=== PATIENT | male | born 1950 | race Caucasian/White ===

== ENCOUNTER 2020-01-14 17:43 | Inpatient (IN) | payer OTHER, MEDICAID, SELFPAY ==
[~2020-01-14] VITALS: Ht 177.8 cm; Wt 110.9 kg
[2020-01-14] MEDS ORDERED: GLUC1KIT IJ (18:15)
[2020-01-14] MEDS ORDERED: FOLI0.8T42 PO (18:15)
[2020-01-14] MEDS ORDERED: HYDR-4274 PO (18:15)
[2020-01-14] MEDS ORDERED: WARF3TAB PO (18:15)
[2020-01-14] MEDS ORDERED: CAT.1 PO (18:15)
[2020-01-14] MEDS ORDERED: LISI-600 PO (18:15)
[2020-01-14] MEDS ORDERED: INSU100I4 SUBQ (18:15)
[2020-01-14] MEDS ORDERED: GABA-529 PO (18:15)
[2020-01-14] MEDS ORDERED: CALC667T6 PO (18:15)
[2020-01-14] MEDS ORDERED: ACET-2165 PO (18:15)
[2020-01-14] MEDS ORDERED: GLIP10TA PO (18:15)
[2020-01-14] MEDS ORDERED: DIPH-934 PO (18:15)
[2020-01-14 18:25] VITALS: BP_SYST 132
[2020-01-14 18:25] LABS: BASOPHILS % (AUTO) 0.3 % (0.0-2.0); EOSINOPHILS # (AUTO) 0.2 K/uL (0.0-0.4); EOSINOPHILS % (AUTO) 1.4 % (0.0-4.0); HEMATOCRIT 27.9 % (36-54); HEMOGLOBIN 8.9 g/dL (14.0-18.0); LYMPHOCYTES # (AUTO) 0.7 K/uL (1.0-5.5); LYMPHOCYTES % (AUTO) 5.2 % (20.5-51.5); MEAN CORPUSCULAR HEMOGLOBIN 31 pg (27-31); MEAN CORPUSCULAR HGB CONC 32 % (32-36); MEAN CORPUSCULAR VOLUME 97 fL (79.0-98.0); MONOCYTES # (AUTO) 0.6 K/uL (0.0-1.0); MONOCYTES % (AUTO) 4.6 % (1.7-9.3); NEUTROPHILS # (AUTO) 12.1 K/uL (1.8-7.7); NEUTROPHILS % (AUTO) 88.5 % (40.0-70.0); PLATELET COUNT (AUTO) 304 K/uL (130-430); RED BLOOD CELL COUNT(AUTO) 2.86 MIL/uL (4.2-6.2); RED CELL DISTRIBUTION WIDTH 18.5 % (9.0-15.0); WHITE BLOOD COUNT (AUTO) 13.6 K/uL (4.8-10.8)
[2020-01-14 18:26] VITALS: BP_SYST 132
[2020-01-14 18:39] LABS: CREATININE 6.36 mg/dL (0.55-1.30); POTASSIUM 3.3 mmol/L (3.5-5.1)
[2020-01-14 18:41] LABS: BILIRUBIN,URINE NEGATIVE (NEGATIVE); COLOR,URINE YELLOW (YELLOW); GLUCOSE,URINE NEGATIVE (NEGATIVE); KETONES,URINE NEGATIVE (NEGATIVE); LEUKOCYTE ESTERASE ,URINE 2+ (NEGATIVE); NITRITE, URINE NEGATIVE (NEGATIVE); PROTEIN URINE NEGATIVE (NEGATIVE); UROBILINOGEN,URINE 0.2 (0.2-1.0)
[2020-01-14 18:44] LABS: ALBUMIN 1.9 g/dL (3.4-4.8); TOTAL BILIRUBIN 0.4 mg/dL (0.0-1.0)
[2020-01-14 18:52] LABS: BLOOD, URINE TRACE (NEGATIVE); CLARITY/URINE HAZY (CLEAR)
[2020-01-14 18:58] LABS: CALCIUM 13.8 mg/dL (8.4-11.0)
[2020-01-14 19:19] LABS: BACTERIA,URINE MODERATE /HPF (None Seen)
[2020-01-14 19:20] LABS: MUCUS,URINE None Seen /LPF (None Seen); YEAST,URINE Few /HPF (None Seen)
[2020-01-14] MEDS ORDERED: FUROSEMIDE 40 MG/4 ML VIAL IVP ONE (19:30)
[2020-01-14] MEDS ORDERED: NACL 0.9% 1,000 ML IV ONE (19:30)
[2020-01-14 19:47] LABS: INR 2.5 (0.80-1.20)
[2020-01-14] MEDS: glipiZIDE XL 5 MG TAB ( GLUCOTROL XL) PO SCH (21:15)
[2020-01-14] MEDS ORDERED: ACETAMINOPHEN 325 MG TABLET PO PRN (21:15)
[2020-01-14 21:16] VITALS: BP_SYST 122
[2020-01-14] MEDS ORDERED: HYDROcodone/ACETAMIN 10-325 MG TAB PO PRN (21:30)
[2020-01-14] MEDS ORDERED: cefTRIAXone 1 GM IVPB PREMIX 50 ML IV ONE (21:40)
[2020-01-14] MEDS: levETIRAcetam 500 MG IV PREMIX 100 ML IV SCH (22:47)
[2020-01-14] MEDS: WARFARIN SODIUM 3 MG TABLET PO SCH (23:23)
[2020-01-14] MEDS: GABAPENTIN 100 MG CAPSULE PO SCH (23:24)
[2020-01-14] MEDS: NEPHROVITE, (FOLIC ACID/VITAMIN B COMP W-C 1 TAB) PO SCH (23:24)
[2020-01-14] MEDS: CALCITONIN SALMON,SYNTHETIC 200 UNITS/ML VIAL SUBCUT SCH ×2 (23:25→23:38)
[2020-01-14] MEDS: LISINOPRIL 20 MG TABLET PO SCH (23:25)
[2020-01-15 01:48] VITALS: BP_SYST 102
[2020-01-15 06:27] LABS: BASOPHILS # (AUTO) 0.1 K/uL (0.0-0.2); BASOPHILS % (AUTO) 0.5 % (0.0-2.0); EOSINOPHILS # (AUTO) 0.3 K/uL (0.0-0.4); EOSINOPHILS % (AUTO) 2.3 % (0.0-4.0); HEMATOCRIT 24.9 % (36-54); LYMPHOCYTES # (AUTO) 1.1 K/uL (1.0-5.5); LYMPHOCYTES % (AUTO) 7.5 % (20.5-51.5); MEAN CORPUSCULAR HEMOGLOBIN 31 pg (27-31); MEAN CORPUSCULAR HGB CONC 32 % (32-36); MEAN CORPUSCULAR VOLUME 97 fL (79.0-98.0); MONOCYTES # (AUTO) 0.9 K/uL (0.0-1.0); MONOCYTES % (AUTO) 6.1 % (1.7-9.3); NEUTROPHILS # (AUTO) 12.3 K/uL (1.8-7.7); NEUTROPHILS % (AUTO) 83.6 % (40.0-70.0); PLATELET COUNT (AUTO) 256 K/uL (130-430); RED BLOOD CELL COUNT(AUTO) 2.56 MIL/uL (4.2-6.2); RED CELL DISTRIBUTION WIDTH 18.8 % (9.0-15.0); WHITE BLOOD COUNT (AUTO) 14.8 K/uL (4.8-10.8)
[2020-01-15 06:40] LABS: ALBUMIN 1.8 g/dL (3.4-4.8); CALCIUM 12.4 mg/dL (8.4-11.0); CREATININE 6.84 mg/dL (0.55-1.30); POTASSIUM 3.1 mmol/L (3.5-5.1); TOTAL BILIRUBIN 0.3 mg/dL (0.0-1.0)
[2020-01-15] MEDS: glipiZIDE XL 5 MG TAB ( GLUCOTROL XL) PO SCH (07:00)
[2020-01-15 08:30] VITALS: BP_SYST 154
[2020-01-15] MEDS: GABAPENTIN 100 MG CAPSULE PO SCH ×3 (09:00→21:00)
[2020-01-15] MEDS: LISINOPRIL 20 MG TABLET PO SCH (09:00)
[2020-01-15] MEDS: CALCITONIN SALMON,SYNTHETIC 200 UNITS/ML VIAL SUBCUT SCH ×2 (09:00→14:28)
[2020-01-15] MEDS: NEPHROVITE, (FOLIC ACID/VITAMIN B COMP W-C 1 TAB) PO SCH (09:00)
[2020-01-15] MEDS: DIPHENHYDRAMINE HCL 12.5 MG/5 ML UDC PO SCH (09:00)
[2020-01-15] MEDS: levETIRAcetam 500 MG IV PREMIX 100 ML IV SCH ×2 (09:53→21:58)
[2020-01-15 12:24] VITALS: BP_SYST 189
[2020-01-15] MEDS: D5/0.45 NS 1,000 ML IV SCH (14:25)
[2020-01-15 15:43] VITALS: BP_SYST 146
[2020-01-15] MEDS: WARFARIN SODIUM 3 MG TABLET PO SCH (17:57)
[2020-01-15] MEDS ORDERED: FLUCONAZOLE 100 mg/ NS 50 ML IV ONE (18:00)
[2020-01-15] MEDS ORDERED: INSULIN REGULAR, HUMAN 100 UNITS/ML, 10 ML VIAL (humuLIN R) SUBCUT PRN (19:00)
[2020-01-15 20:18] VITALS: BP_SYST 151
[2020-01-15] MEDS: metroNIDAZOLE 500 mg/NS 100 ML IV SCH (20:22)
[2020-01-15] MEDS: cefTRIAXone 1 GM in D5W 50 ML IV SCH (22:37)
[2020-01-15] MEDS: HEPARIN SODIUM,PORCINE 5000 UNITS/ML VIAL SUBCUT SCH (22:41)
[2020-01-16 02:03] VITALS: BP_SYST 115
[2020-01-16] MEDS: glipiZIDE XL 5 MG TAB ( GLUCOTROL XL) PO SCH (03:40)
[2020-01-16] MEDS: D5/0.45 NS 1,000 ML IV SCH ×2 (05:24→22:39)
[2020-01-16] MEDS: HEPARIN SODIUM,PORCINE 5000 UNITS/ML VIAL SUBCUT SCH (05:28)
[2020-01-16 06:37] LABS: BASOPHILS # (AUTO) 0.1 K/uL (0.0-0.2); BASOPHILS % (AUTO) 0.6 % (0.0-2.0); EOSINOPHILS # (AUTO) 0.4 K/uL (0.0-0.4); EOSINOPHILS % (AUTO) 2.4 % (0.0-4.0); HEMATOCRIT 24.9 % (36-54); HEMOGLOBIN 8.1 g/dL (14.0-18.0); LYMPHOCYTES % (AUTO) 6.3 % (20.5-51.5); MEAN CORPUSCULAR HEMOGLOBIN 32 pg (27-31); MEAN CORPUSCULAR HGB CONC 32 % (32-36); MEAN CORPUSCULAR VOLUME 98 fL (79.0-98.0); MONOCYTES # (AUTO) 0.9 K/uL (0.0-1.0); MONOCYTES % (AUTO) 5.5 % (1.7-9.3); NEUTROPHILS # (AUTO) 14.1 K/uL (1.8-7.7); NEUTROPHILS % (AUTO) 85.2 % (40.0-70.0); PLATELET COUNT (AUTO) 244 K/uL (130-430); RED BLOOD CELL COUNT(AUTO) 2.54 MIL/uL (4.2-6.2); RED CELL DISTRIBUTION WIDTH 18.7 % (9.0-15.0); WHITE BLOOD COUNT (AUTO) 16.6 K/uL (4.8-10.8)
[2020-01-16 06:43] LABS: ALBUMIN 1.8 g/dL (3.4-4.8); CALCIUM 10.2 mg/dL (8.4-11.0); CREATININE 4.93 mg/dL (0.55-1.30); TOTAL BILIRUBIN 0.4 mg/dL (0.0-1.0)
[2020-01-16 06:54] LABS: POTASSIUM 2.9 mmol/L (3.5-5.1)
[2020-01-16 07:13] LABS: INR 3.7 (0.80-1.20); PROTHROMBIN TIME 36.2 SECS (9.5-12.5)
[2020-01-16 08:00] VITALS: BP_SYST 137
[2020-01-16] MEDS ORDERED: POTASSIUM CHLORIDE 40 MEQ in NS 250 ML IV ONE (08:45)
[2020-01-16] MEDS: GABAPENTIN 100 MG CAPSULE PO SCH ×3 (09:00→21:00)
[2020-01-16] MEDS: NEPHROVITE, (FOLIC ACID/VITAMIN B COMP W-C 1 TAB) PO SCH (09:00)
[2020-01-16] MEDS: LISINOPRIL 20 MG TABLET PO SCH (09:00)
[2020-01-16] MEDS: POVIDONE IODINE TP SCH (09:00)
[2020-01-16] MEDS: DIPHENHYDRAMINE HCL 12.5 MG/5 ML UDC PO SCH (09:00)
[2020-01-16] MEDS: levETIRAcetam 500 MG IV PREMIX 100 ML IV SCH ×2 (10:05→21:07)
[2020-01-16] MEDS: metroNIDAZOLE 500 mg/NS 100 ML IV SCH ×2 (10:05→21:07)
[2020-01-16] MEDS: CALCITONIN SALMON,SYNTHETIC 200 UNITS/ML VIAL SUBCUT SCH (10:07)
[2020-01-16 12:18] VITALS: BP_SYST 142
[2020-01-16] MEDS ORDERED: DEXTROSE 50% JECT 50 ML DISP.SYRIN IVP PRN (14:45)
[2020-01-16 16:45] VITALS: BP_SYST 155
[2020-01-16 20:00] VITALS: BP_SYST 145
[2020-01-16] MEDS: cefTRIAXone 1 GM in D5W 50 ML IV SCH (21:08)
[2020-01-17 00:52] VITALS: BP_SYST 141
[2020-01-17] MEDS: INSULIN LISPRO SLIDING SCALE 100 UNITS/ML VIAL (humaLOG) SUBCUT PRN ×2 (06:05→11:45)
[2020-01-17 06:52] LABS: INR 3.8 (0.80-1.20); PROTHROMBIN TIME 36.9 SECS (9.5-12.5)
[2020-01-17 08:26] VITALS: BP_SYST 124
[2020-01-17] MEDS: LISINOPRIL 20 MG TABLET PO SCH (09:00)
[2020-01-17] MEDS: NEPHROVITE, (FOLIC ACID/VITAMIN B COMP W-C 1 TAB) PO SCH (09:00)
[2020-01-17] MEDS: GABAPENTIN 100 MG CAPSULE PO SCH ×3 (09:00→20:38)
[2020-01-17] MEDS: DIPHENHYDRAMINE HCL 12.5 MG/5 ML UDC PO SCH (09:00)
[2020-01-17] MEDS: metroNIDAZOLE 500 mg/NS 100 ML IV SCH ×2 (10:07→20:33)
[2020-01-17] MEDS: levETIRAcetam 500 MG IV PREMIX 100 ML IV SCH ×2 (10:08→20:33)
[2020-01-17] MEDS: CALCITONIN SALMON,SYNTHETIC 200 UNITS/ML VIAL SUBCUT SCH (10:18)
[2020-01-17 11:08] LABS: A/G RATIO 0.8 (0.7-1.7); ALBUMIN 2.4 g/dL (2.9-4.4); ALPHA-1-GLOBULIN 0.4 g/dL (0.0-0.4); ALPHA-2-GLOBULIN 0.8 g/dL (0.4-1.0); BETA GLOBULIN 0.9 g/dL (0.7-1.3); GAMMA GLOBULIN 0.8 g/dL (0.4-1.8); GLOBULIN, TOTAL 2.9 g/dL (2.2-3.9); M-SPIKE Not Observed g/dL (Not Observed)
[2020-01-17 11:45] LABS: KAPPA & LAMBDA LT CHAIN RATIO 1.78 (0.26-1.65)
[2020-01-17 12:28] VITALS: BP_SYST 110
[2020-01-17 16:10] VITALS: BP_SYST 115
[2020-01-17] MEDS: POVIDONE IODINE TP SCH (16:30)
[2020-01-17] MEDS: D5/0.45 NS 1,000 ML IV SCH (17:02)
[2020-01-17] MEDS: FLUCONAZOLE 100 mg/ NS 50 ML IV SCH (18:22)
[2020-01-17 19:59] LABS: CALCIUM 9.4 mg/dL (8.4-11.0); CREATININE 3.32 mg/dL (0.55-1.30); POTASSIUM 3.7 mmol/L (3.5-5.1)
[2020-01-17 20:15] VITALS: BP_SYST 128
[2020-01-17] MEDS: cefTRIAXone 1 GM in D5W 50 ML IV SCH (20:33)
[2020-01-17] MEDS: HALOPERIDOL LACTATE 5 MG/ML VIAL IM PRN (22:10)
[2020-01-18 00:05] VITALS: BP_SYST 108
[2020-01-18] MEDS: INSULIN LISPRO SLIDING SCALE 100 UNITS/ML VIAL (humaLOG) SUBCUT PRN ×2 (00:23→13:08)
[2020-01-18] MEDS: HALOPERIDOL LACTATE 5 MG/ML VIAL IM PRN (05:16)
[2020-01-18 06:58] LABS: BASOPHILS # (AUTO) 0.1 K/uL (0.0-0.2); BASOPHILS % (AUTO) 0.5 % (0.0-2.0); EOSINOPHILS # (AUTO) 0.5 K/uL (0.0-0.4); HEMATOCRIT 23.9 % (36-54); LYMPHOCYTES % (AUTO) 7.7 % (20.5-51.5); MEAN CORPUSCULAR HEMOGLOBIN 32 pg (27-31); MEAN CORPUSCULAR HGB CONC 33 % (32-36); MEAN CORPUSCULAR VOLUME 96 fL (79.0-98.0); MONOCYTES # (AUTO) 0.7 K/uL (0.0-1.0); MONOCYTES % (AUTO) 5.1 % (1.7-9.3); NEUTROPHILS # (AUTO) 11.3 K/uL (1.8-7.7); NEUTROPHILS % (AUTO) 82.7 % (40.0-70.0); PLATELET COUNT (AUTO) 227 K/uL (130-430); RED BLOOD CELL COUNT(AUTO) 2.48 MIL/uL (4.2-6.2); RED CELL DISTRIBUTION WIDTH 18.7 % (9.0-15.0); WHITE BLOOD COUNT (AUTO) 13.7 K/uL (4.8-10.8)
[2020-01-18 07:23] LABS: INR 3.7 (0.80-1.20); PROTHROMBIN TIME 36.3 SECS (9.5-12.5)
[2020-01-18 08:54] VITALS: BP_SYST 167
[2020-01-18] MEDS: DIPHENHYDRAMINE HCL 12.5 MG/5 ML UDC PO SCH (09:00)
[2020-01-18] MEDS: NEPHROVITE, (FOLIC ACID/VITAMIN B COMP W-C 1 TAB) PO SCH (09:00)
[2020-01-18] MEDS: LISINOPRIL 20 MG TABLET PO SCH (09:00)
[2020-01-18] MEDS: GABAPENTIN 100 MG CAPSULE PO SCH ×3 (09:00→21:00)
[2020-01-18] MEDS: POVIDONE IODINE TP SCH (09:00)
[2020-01-18] MEDS: QUEtiapine FUMARATE 25 MG TABLET PO SCH ×3 (09:00→21:00)
[2020-01-18] MEDS ORDERED: *TPN PER PHARMACY XX PRN (09:45)
[2020-01-18 11:30] VITALS: BP_SYST 141
[2020-01-18] MEDS: levETIRAcetam 500 MG IV PREMIX 100 ML IV SCH ×2 (12:40→21:40)
[2020-01-18] MEDS: D5/0.45 NS 1,000 ML IV SCH (12:48)
[2020-01-18] MEDS: metroNIDAZOLE 500 mg/NS 100 ML IV SCH ×2 (12:50→20:35)
[2020-01-18] MEDS: FLUCONAZOLE 100 mg/ NS 50 ML IV SCH (13:04)
[2020-01-18 15:30] VITALS: BP_SYST 139
[2020-01-18] MEDS: EPOETIN ALFA 10,000 UNITS/ML VIAL SUBCUT SCH (18:23)
[2020-01-18 20:00] VITALS: BP_SYST 126
[2020-01-18] MEDS ORDERED: [UNRECOGNIZED DRUG - OTHER] IV SCH ×6 (21:00)
[2020-01-18] MEDS ORDERED: POTASSIUM CHLORIDE IV SCH ×6 (21:00)
[2020-01-18] MEDS ORDERED: SODIUM ACETATE IV SCH ×6 (21:00)
[2020-01-18] MEDS ORDERED: TPN PERIPHERAL IV SCH ×6 (21:00)
[2020-01-18] MEDS: cefTRIAXone 1 GM in D5W 50 ML IV SCH (22:50)
[2020-01-19] MEDS: INSULIN LISPRO SLIDING SCALE 100 UNITS/ML VIAL (humaLOG) SUBCUT PRN ×3 (00:02→18:14)
[2020-01-19] MEDS: D5/0.45 NS 1,000 ML IV SCH ×2 (00:50→18:10)
[2020-01-19 01:13] VITALS: BP_SYST 142
[2020-01-19 07:40] VITALS: BP_SYST 126
[2020-01-19] MEDS: QUEtiapine FUMARATE 25 MG TABLET PO SCH ×3 (09:00→20:45)
[2020-01-19] MEDS: POVIDONE IODINE TP SCH (09:00)
[2020-01-19] MEDS: GABAPENTIN 100 MG CAPSULE PO SCH ×3 (09:00→20:45)
[2020-01-19] MEDS: LISINOPRIL 20 MG TABLET PO SCH (09:00)
[2020-01-19] MEDS: NEPHROVITE, (FOLIC ACID/VITAMIN B COMP W-C 1 TAB) PO SCH (09:00)
[2020-01-19] MEDS: DIPHENHYDRAMINE HCL 12.5 MG/5 ML UDC PO SCH (09:00)
[2020-01-19] MEDS: metroNIDAZOLE 500 mg/NS 100 ML IV SCH ×2 (09:02→20:49)
[2020-01-19] MEDS: levETIRAcetam 500 MG IV PREMIX 100 ML IV SCH ×2 (09:02→22:48)
[2020-01-19 09:28] LABS: ALBUMIN 1.6 g/dL (3.4-4.8); CALCIUM 10.4 mg/dL (8.4-11.0); CREATININE 4.74 mg/dL (0.55-1.30); PHOSPHORUS 3.8 mg/dL (2.7-4.5); TOTAL BILIRUBIN 0.2 mg/dL (0.0-1.0)
[2020-01-19] MEDS ORDERED: INSULIN GLARGINE 100 UNITS/ML 10 ML VIAL SUBCUT ONE (11:51)
[2020-01-19 13:15] VITALS: BP_SYST 118
[2020-01-19] MEDS: FLUCONAZOLE 100 mg/ NS 50 ML IV SCH (14:47)
[2020-01-19 17:32] VITALS: BP_SYST 119
[2020-01-19 20:00] VITALS: BP_SYST 105
[2020-01-19] MEDS: EPOETIN ALFA 10,000 UNITS/ML VIAL SUBCUT SCH (20:45)
[2020-01-19] MEDS ORDERED: TPN PERIPHERAL IV SCH ×7 (21:00)
[2020-01-19] MEDS ORDERED: MVI IV SCH ×7 (21:00)
[2020-01-19] MEDS ORDERED: POTASSIUM CHLORIDE IV SCH ×7 (21:00)
[2020-01-19] MEDS ORDERED: [UNRECOGNIZED DRUG - OTHER] IV SCH ×7 (21:00)
[2020-01-19] MEDS ORDERED: SODIUM ACETATE IV SCH ×7 (21:00)
[2020-01-19] MEDS: cefTRIAXone 1 GM in D5W 50 ML IV SCH (22:09)
[2020-01-20] MEDS: INSULIN LISPRO SLIDING SCALE 100 UNITS/ML VIAL (humaLOG) SUBCUT PRN ×4 (00:09→17:25)
[2020-01-20 01:13] VITALS: BP_SYST 110
[2020-01-20 08:00] VITALS: BP_SYST 128
[2020-01-20 08:39] LABS: BASOPHILS # (AUTO) 0.1 K/uL (0.0-0.2); EOSINOPHILS # (AUTO) 0.5 K/uL (0.0-0.4); EOSINOPHILS % (AUTO) 4.2 % (0.0-4.0); HEMATOCRIT 25.1 % (36-54); HEMOGLOBIN 8.3 g/dL (14.0-18.0); LYMPHOCYTES # (AUTO) 1.2 K/uL (1.0-5.5); LYMPHOCYTES % (AUTO) 10.7 % (20.5-51.5); MEAN CORPUSCULAR HEMOGLOBIN 32 pg (27-31); MEAN CORPUSCULAR HGB CONC 33 % (32-36); MEAN CORPUSCULAR VOLUME 96 fL (79.0-98.0); MONOCYTES # (AUTO) 0.5 K/uL (0.0-1.0); MONOCYTES % (AUTO) 4.4 % (1.7-9.3); NEUTROPHILS # (AUTO) 8.6 K/uL (1.8-7.7); NEUTROPHILS % (AUTO) 79.7 % (40.0-70.0); PLATELET COUNT (AUTO) 228 K/uL (130-430); RED BLOOD CELL COUNT(AUTO) 2.62 MIL/uL (4.2-6.2); RED CELL DISTRIBUTION WIDTH 18.6 % (9.0-15.0); WHITE BLOOD COUNT (AUTO) 10.8 K/uL (4.8-10.8)
[2020-01-20] MEDS: DIPHENHYDRAMINE HCL 12.5 MG/5 ML UDC PO SCH (09:00)
[2020-01-20] MEDS: QUEtiapine FUMARATE 25 MG TABLET PO SCH ×3 (09:00→20:12)
[2020-01-20] MEDS: LISINOPRIL 20 MG TABLET PO SCH (09:00)
[2020-01-20] MEDS: NEPHROVITE, (FOLIC ACID/VITAMIN B COMP W-C 1 TAB) PO SCH (09:00)
[2020-01-20] MEDS ORDERED: INSULIN GLARGINE 100 UNITS/ML 10 ML VIAL SUBCUT SCH (09:00)
[2020-01-20] MEDS: POVIDONE IODINE TP SCH (09:00)
[2020-01-20] MEDS: GABAPENTIN 100 MG CAPSULE PO SCH ×3 (09:00→20:12)
[2020-01-20 09:07] LABS: INR 1.5 (0.80-1.20); PROTHROMBIN TIME 14.5 SECS (9.5-12.5)
[2020-01-20] MEDS: levETIRAcetam 500 MG IV PREMIX 100 ML IV SCH ×2 (09:18→20:39)
[2020-01-20] MEDS: metroNIDAZOLE 500 mg/NS 100 ML IV SCH ×2 (09:18→20:39)
[2020-01-20] MEDS: D5/0.45 NS 1,000 ML IV SCH (10:10)
[2020-01-20 10:11] LABS: CALCIUM 10.2 mg/dL (8.4-11.0); CREATININE 3.22 mg/dL (0.55-1.30); POTASSIUM 3.1 mmol/L (3.5-5.1)
[2020-01-20 10:12] LABS: ALBUMIN 1.7 g/dL (3.4-4.8); PHOSPHORUS 3.1 mg/dL (2.7-4.5); TOTAL BILIRUBIN 0.2 mg/dL (0.0-1.0)
[2020-01-20] MEDS: HALOPERIDOL LACTATE 5 MG/ML VIAL IM PRN (11:05)
[2020-01-20 12:00] VITALS: BP_SYST 106
[2020-01-20] MEDS: FLUCONAZOLE 100 mg/ NS 50 ML IV SCH (12:54)
[2020-01-20] MEDS: EPOETIN ALFA 10,000 UNITS/ML VIAL SUBCUT SCH (17:00)
[2020-01-20 17:09] VITALS: BP_SYST 130
[2020-01-20 20:00] VITALS: BP_SYST 159
[2020-01-20] MEDS: cefTRIAXone 1 GM in D5W 50 ML IV SCH (20:40)
[2020-01-20] MEDS ORDERED: [UNRECOGNIZED DRUG - OTHER] IV SCH ×9 (21:00)
[2020-01-20] MEDS ORDERED: POTASSIUM CHLORIDE IV SCH ×9 (21:00)
[2020-01-20] MEDS ORDERED: TPN PERIPHERAL IV SCH ×9 (21:00)
[2020-01-20] MEDS ORDERED: SODIUM CHLORIDE IV SCH ×9 (21:00)
[2020-01-21] MEDS: INSULIN LISPRO SLIDING SCALE 100 UNITS/ML VIAL (humaLOG) SUBCUT PRN ×4 (00:12→19:27)
[2020-01-21 00:55] VITALS: BP_SYST 159
[2020-01-21] MEDS: D5/0.45 NS 1,000 ML IV SCH (02:50)
[2020-01-21] MEDS: HALOPERIDOL LACTATE 5 MG/ML VIAL IM PRN (04:04)
[2020-01-21 07:50] LABS: ALBUMIN 1.6 g/dL (3.4-4.8); CALCIUM 10.4 mg/dL (8.4-11.0); CREATININE 3.75 mg/dL (0.55-1.30); PHOSPHORUS 3.5 mg/dL (2.7-4.5); POTASSIUM 3.5 mmol/L (3.5-5.1); TOTAL BILIRUBIN 0.3 mg/dL (0.0-1.0)
[2020-01-21 08:00] VITALS: BP_SYST 157
[2020-01-21] MEDS: levETIRAcetam 500 MG IV PREMIX 100 ML IV SCH ×2 (08:27→23:13)
[2020-01-21] MEDS: metroNIDAZOLE 500 mg/NS 100 ML IV SCH (08:27)
[2020-01-21] MEDS: GABAPENTIN 100 MG CAPSULE PO SCH ×3 (08:28→21:00)
[2020-01-21] MEDS: NEPHROVITE, (FOLIC ACID/VITAMIN B COMP W-C 1 TAB) PO SCH (08:28)
[2020-01-21] MEDS: DIPHENHYDRAMINE HCL 12.5 MG/5 ML UDC PO SCH (08:28)
[2020-01-21] MEDS: LISINOPRIL 20 MG TABLET PO SCH (08:28)
[2020-01-21] MEDS: QUEtiapine FUMARATE 25 MG TABLET PO SCH ×3 (08:29→21:00)
[2020-01-21] MEDS: INSULIN GLARGINE 100 UNITS/ML 10 ML VIAL SUBCUT SCH (08:50)
[2020-01-21] MEDS: POVIDONE IODINE TP SCH (09:00)
[2020-01-21 11:43] VITALS: BP_SYST 146
[2020-01-21] MEDS: FLUCONAZOLE 100 mg/ NS 50 ML IV SCH (13:49)
[2020-01-21 15:46] VITALS: BP_SYST 150
[2020-01-21] MEDS: NACL 0.9% 1,000 ML IV SCH (16:51)
[2020-01-21] MEDS: EPOETIN ALFA 10,000 UNITS/ML VIAL SUBCUT SCH (16:53)
[2020-01-21 20:35] VITALS: BP_SYST 153
[2020-01-21] MEDS ORDERED: POTASSIUM CHLORIDE IV SCH ×9 (21:00)
[2020-01-21] MEDS ORDERED: TPN PERIPHERAL IV SCH ×9 (21:00)
[2020-01-21] MEDS ORDERED: SODIUM CHLORIDE IV SCH ×9 (21:00)
[2020-01-21] MEDS ORDERED: [UNRECOGNIZED DRUG - OTHER] IV SCH ×9 (21:00)
[2020-01-21] MEDS: cefTRIAXone 1 GM in D5W 50 ML IV SCH (23:13)
[2020-01-22] MEDS: INSULIN LISPRO SLIDING SCALE 100 UNITS/ML VIAL (humaLOG) SUBCUT PRN ×4 (00:06→17:47)
[2020-01-22 00:22] VITALS: BP_SYST 157
[2020-01-22 07:16] LABS: BASOPHILS # (AUTO) 0.1 K/uL (0.0-0.2); BASOPHILS % (AUTO) 0.7 % (0.0-2.0); EOSINOPHILS # (AUTO) 0.3 K/uL (0.0-0.4); EOSINOPHILS % (AUTO) 2.4 % (0.0-4.0); HEMATOCRIT 25.9 % (36-54); HEMOGLOBIN 8.4 g/dL (14.0-18.0); LYMPHOCYTES # (AUTO) 1.2 K/uL (1.0-5.5); LYMPHOCYTES % (AUTO) 10.5 % (20.5-51.5); MEAN CORPUSCULAR HEMOGLOBIN 31 pg (27-31); MEAN CORPUSCULAR HGB CONC 33 % (32-36); MEAN CORPUSCULAR VOLUME 96 fL (79.0-98.0); MONOCYTES # (AUTO) 0.4 K/uL (0.0-1.0); MONOCYTES % (AUTO) 3.1 % (1.7-9.3); NEUTROPHILS # (AUTO) 9.4 K/uL (1.8-7.7); NEUTROPHILS % (AUTO) 83.3 % (40.0-70.0); PLATELET COUNT (AUTO) 192 K/uL (130-430); RED BLOOD CELL COUNT(AUTO) 2.69 MIL/uL (4.2-6.2); RED CELL DISTRIBUTION WIDTH 18.3 % (9.0-15.0); WHITE BLOOD COUNT (AUTO) 11.3 K/uL (4.8-10.8)
[2020-01-22 08:15] LABS: CALCIUM 10.3 mg/dL (8.4-11.0); CREATININE 4.14 mg/dL (0.55-1.30); PHOSPHORUS 4.1 mg/dL (2.7-4.5); POTASSIUM 3.8 mmol/L (3.5-5.1)
[2020-01-22 08:17] VITALS: BP_SYST 136
[2020-01-22] MEDS: QUEtiapine FUMARATE 25 MG TABLET PO SCH ×4 (09:00→21:00)
[2020-01-22] MEDS: GABAPENTIN 100 MG CAPSULE PO SCH ×4 (09:00→21:00)
[2020-01-22] MEDS: POVIDONE IODINE TP SCH (09:00)
[2020-01-22] MEDS: LISINOPRIL 20 MG TABLET PO SCH ×2 (09:00→09:19)
[2020-01-22] MEDS: NEPHROVITE, (FOLIC ACID/VITAMIN B COMP W-C 1 TAB) PO SCH ×2 (09:00→09:19)
[2020-01-22] MEDS: DIPHENHYDRAMINE HCL 12.5 MG/5 ML UDC PO SCH ×2 (09:00→09:19)
[2020-01-22] MEDS: levETIRAcetam 500 MG IV PREMIX 100 ML IV SCH ×2 (09:20→21:44)
[2020-01-22] MEDS: NACL 0.9% 1,000 ML IV SCH (09:20)
[2020-01-22] MEDS: INSULIN GLARGINE 100 UNITS/ML 10 ML VIAL SUBCUT SCH (09:31)
[2020-01-22 09:39] LABS: INR 1.3 (0.80-1.20); PROTHROMBIN TIME 12.9 SECS (9.5-12.5)
[2020-01-22] MEDS ORDERED: ALBUMIN HUMAN 25% 200 ML IV ONE (11:45)
[2020-01-22 12:41] VITALS: BP_SYST 161
[2020-01-22] MEDS: FLUCONAZOLE 100 mg/ NS 50 ML IV SCH (14:55)
[2020-01-22 16:46] VITALS: BP_SYST 132
[2020-01-22] MEDS: WARFARIN SODIUM 3 MG TABLET PO SCH (17:34)
[2020-01-22] MEDS: EPOETIN ALFA 10,000 UNITS/ML VIAL SUBCUT SCH (17:46)
[2020-01-22 18:33] LABS: BILIRUBIN,URINE NEGATIVE (NEGATIVE); BLOOD, URINE 3+ (NEGATIVE); COLOR,URINE YELLOW (YELLOW); GLUCOSE,URINE 2+ (NEGATIVE); KETONES,URINE NEGATIVE (NEGATIVE); LEUKOCYTE ESTERASE ,URINE 1+ (NEGATIVE); NITRITE, URINE NEGATIVE (NEGATIVE); PH,URINE 7.5 (5.0-8.0); PROTEIN URINE 2+ (NEGATIVE); UROBILINOGEN,URINE 0.2 (0.2-1.0)
[2020-01-22 18:46] LABS: CLARITY/URINE HAZY (CLEAR)
[2020-01-22 19:04] LABS: BACTERIA,URINE MODERATE /HPF (None Seen); RBC,URINE >100 /HPF (0-3)
[2020-01-22 20:00] VITALS: BP_SYST 128
[2020-01-22] MEDS ORDERED: [UNRECOGNIZED DRUG - OTHER] IV SCH ×10 (21:00)
[2020-01-22] MEDS ORDERED: TPN PERIPHERAL IV SCH ×10 (21:00)
[2020-01-22] MEDS ORDERED: POTASSIUM CHLORIDE IV SCH ×10 (21:00)
[2020-01-22] MEDS ORDERED: SODIUM CHLORIDE IV SCH ×10 (21:00)
[2020-01-22] MEDS: FAT EMULSIONS 250 ML IV SCH (21:45)
[2020-01-23] MEDS: NACL 0.9% 1,000 ML IV SCH (00:05)
[2020-01-23] MEDS: INSULIN LISPRO SLIDING SCALE 100 UNITS/ML VIAL (humaLOG) SUBCUT PRN ×4 (00:56→18:36)
[2020-01-23 05:54] VITALS: BP_SYST 144
[2020-01-23 06:29] LABS: BASOPHILS # (AUTO) 0.1 K/uL (0.0-0.2); BASOPHILS % (AUTO) 0.6 % (0.0-2.0); EOSINOPHILS # (AUTO) 0.2 K/uL (0.0-0.4); EOSINOPHILS % (AUTO) 1.7 % (0.0-4.0); HEMATOCRIT 24.8 % (36-54); HEMOGLOBIN 8.1 g/dL (14.0-18.0); LYMPHOCYTES % (AUTO) 8.5 % (20.5-51.5); MEAN CORPUSCULAR HEMOGLOBIN 31 pg (27-31); MEAN CORPUSCULAR HGB CONC 33 % (32-36); MEAN CORPUSCULAR VOLUME 96 fL (79.0-98.0); MONOCYTES # (AUTO) 0.6 K/uL (0.0-1.0); MONOCYTES % (AUTO) 4.9 % (1.7-9.3); NEUTROPHILS # (AUTO) 9.6 K/uL (1.8-7.7); NEUTROPHILS % (AUTO) 84.3 % (40.0-70.0); PLATELET COUNT (AUTO) 200 K/uL (130-430); RED CELL DISTRIBUTION WIDTH 18.6 % (9.0-15.0); WHITE BLOOD COUNT (AUTO) 11.4 K/uL (4.8-10.8)
[2020-01-23 06:50] LABS: ALBUMIN 2.3 g/dL (3.4-4.8); CALCIUM 10.6 mg/dL (8.4-11.0); CREATININE 2.83 mg/dL (0.55-1.30); PHOSPHORUS 3.7 mg/dL (2.7-4.5); POTASSIUM 3.4 mmol/L (3.5-5.1); TOTAL BILIRUBIN 0.3 mg/dL (0.0-1.0)
[2020-01-23 07:46] LABS: INR 1.3 (0.80-1.20); PROTHROMBIN TIME 12.6 SECS (9.5-12.5)
[2020-01-23 08:00] VITALS: BP_SYST 120
[2020-01-23] MEDS: NEPHROVITE, (FOLIC ACID/VITAMIN B COMP W-C 1 TAB) PO SCH (09:00)
[2020-01-23] MEDS: POVIDONE IODINE TP SCH (09:33)
[2020-01-23] MEDS: levETIRAcetam 500 MG IV PREMIX 100 ML IV SCH ×2 (09:33→20:57)
[2020-01-23] MEDS: INSULIN GLARGINE 100 UNITS/ML 10 ML VIAL SUBCUT SCH (09:35)
[2020-01-23] MEDS: DIPHENHYDRAMINE HCL 12.5 MG/5 ML UDC PO SCH (10:32)
[2020-01-23] MEDS: GABAPENTIN 100 MG CAPSULE PO SCH ×2 (10:33→21:00)
[2020-01-23] MEDS: LISINOPRIL 20 MG TABLET PO SCH (10:33)
[2020-01-23] MEDS: QUEtiapine FUMARATE 25 MG TABLET PO SCH ×2 (10:34→21:00)
[2020-01-23 11:00] VITALS: BP_SYST 73
[2020-01-23] MEDS ORDERED: NS 250 ML IV ONE (11:30)
[2020-01-23] MEDS ORDERED: ATROPINE SULFATE 1 MG/10 ML SYRINGE IVP ONE (11:30)
[2020-01-23 12:19] VITALS: BP_SYST 124
[2020-01-23] MEDS: PIPERACILLIN/TAZO 2.25G/DEX-IS 50 ML IV SCH (13:33)
[2020-01-23 16:45] VITALS: BP_SYST 119
[2020-01-23] MEDS: EPOETIN ALFA 10,000 UNITS/ML VIAL SUBCUT SCH (18:33)
[2020-01-23] MEDS ORDERED: PAMIDRONATE DISODIUM 30 MG in NS 500 ML IV ONE (19:45)
[2020-01-23 20:00] VITALS: BP_SYST 98
[2020-01-23] MEDS ORDERED: ALBUMIN HUMAN 25% 200 ML IV ONE (20:39)
[2020-01-23] MEDS ORDERED: SODIUM CHLORIDE IV SCH ×10 (21:00)
[2020-01-23] MEDS ORDERED: POTASSIUM CHLORIDE IV SCH ×10 (21:00)
[2020-01-23] MEDS ORDERED: [UNRECOGNIZED DRUG - OTHER] IV SCH ×10 (21:00)
[2020-01-23] MEDS ORDERED: TPN PERIPHERAL IV SCH ×10 (21:00)
[2020-01-23] MEDS: FAT EMULSIONS 250 ML IV SCH (22:18)
[2020-01-24] VITALS (23 sets, daily range): BP systolic 70–166
[2020-01-24] MEDS: INSULIN LISPRO SLIDING SCALE 100 UNITS/ML VIAL (humaLOG) SUBCUT PRN ×4 (00:03→18:32)
[2020-01-24 04:06] LABS: BASOPHILS # (AUTO) 0.1 K/uL (0.0-0.2); BASOPHILS % (AUTO) 0.8 % (0.0-2.0); EOSINOPHILS # (AUTO) 0.3 K/uL (0.0-0.4); EOSINOPHILS % (AUTO) 3.5 % (0.0-4.0); HEMATOCRIT 23.4 % (36-54); HEMOGLOBIN 7.7 g/dL (14.0-18.0); LYMPHOCYTES # (AUTO) 1.5 K/uL (1.0-5.5); LYMPHOCYTES % (AUTO) 15.2 % (20.5-51.5); MEAN CORPUSCULAR HEMOGLOBIN 32 pg (27-31); MEAN CORPUSCULAR HGB CONC 33 % (32-36); MEAN CORPUSCULAR VOLUME 95 fL (79.0-98.0); MONOCYTES # (AUTO) 0.4 K/uL (0.0-1.0); MONOCYTES % (AUTO) 4.1 % (1.7-9.3); NEUTROPHILS # (AUTO) 7.5 K/uL (1.8-7.7); NEUTROPHILS % (AUTO) 76.4 % (40.0-70.0); PLATELET COUNT (AUTO) 185 K/uL (130-430); RED BLOOD CELL COUNT(AUTO) 2.45 MIL/uL (4.2-6.2); RED CELL DISTRIBUTION WIDTH 18.7 % (9.0-15.0); WHITE BLOOD COUNT (AUTO) 9.9 K/uL (4.8-10.8)
[2020-01-24] MEDS ORDERED: NS 500 ML IV ONE ×2 (04:15→04:30)
[2020-01-24] MEDS ORDERED: ATROPINE SULFATE 1 MG/10 ML SYRINGE IVP ONE ×2 (04:30→11:57)
[2020-01-24] MEDS ORDERED: NOREPINEPHRINE BITARTRATE 4 MG in D5W 246 ML IV PRN (04:30)
[2020-01-24 04:55] LABS: ALBUMIN 2.7 g/dL (3.4-4.8); CALCIUM 10.7 mg/dL (8.4-11.0); CREATININE 3.44 mg/dL (0.55-1.30); TOTAL BILIRUBIN 0.3 mg/dL (0.0-1.0)
[2020-01-24 05:12] LABS: PHOSPHORUS 3.7 mg/dL (2.7-4.5)
[2020-01-24] MEDS: PIPERACILLIN/TAZO 2.25G/DEX-IS 50 ML IV SCH ×4 (05:31→21:20)
[2020-01-24] MEDS ORDERED: NOREPINEPHRINE 4 MG/4 ML VIAL IV ONE (06:23)
[2020-01-24] MEDS: NEPHROVITE, (FOLIC ACID/VITAMIN B COMP W-C 1 TAB) PO SCH (08:39)
[2020-01-24] MEDS: DIPHENHYDRAMINE HCL 12.5 MG/5 ML UDC PO SCH (08:39)
[2020-01-24] MEDS: GABAPENTIN 100 MG CAPSULE PO SCH ×3 (08:39→22:17)
[2020-01-24] MEDS: QUEtiapine FUMARATE 25 MG TABLET PO SCH ×3 (08:40→22:17)
[2020-01-24] MEDS: LISINOPRIL 20 MG TABLET PO SCH (08:40)
[2020-01-24] MEDS ORDERED: PAMIDRONATE DISODIUM 30 MG in NS 500 ML IV ONE (09:00)
[2020-01-24] MEDS ORDERED: INSULIN GLARGINE 100 UNITS/ML 10 ML VIAL SUBCUT SCH (09:00)
[2020-01-24] MEDS: POVIDONE IODINE TP SCH (10:00)
[2020-01-24] MEDS: levETIRAcetam 500 MG IV PREMIX 100 ML IV SCH ×2 (13:10→21:16)
[2020-01-24] MEDS: NOREPINEPHRINE BITARTRATE 8 MG in D5W 242 ML IV PRN ×2 (15:21→23:24)
[2020-01-24] MEDS ORDERED: ROCURONIUM BROMIDE 10 MG/ML (ZEMURON) IV ONE (17:59)
[2020-01-24] MEDS ORDERED: ETOMIDATE 20 MG/ 10 ML VIAL (AMIDATE) IVP ONE (17:59)
[2020-01-24] MEDS: EPOETIN ALFA 10,000 UNITS/ML VIAL SUBCUT SCH (18:15)
[2020-01-24] MEDS: WARFARIN SODIUM 3 MG TABLET PO SCH (18:19)
[2020-01-24] MEDS ORDERED: PROPOFOL DRIP 100 ML IV PRN (18:45)
[2020-01-24] MEDS ORDERED: SODIUM CHLORIDE IV SCH ×10 (21:00)
[2020-01-24] MEDS ORDERED: POTASSIUM CHLORIDE IV SCH ×10 (21:00)
[2020-01-24] MEDS ORDERED: TPN PERIPHERAL IV SCH ×10 (21:00)
[2020-01-24] MEDS ORDERED: [UNRECOGNIZED DRUG - OTHER] IV SCH ×10 (21:00)
[2020-01-24] MEDS: FAT EMULSIONS 250 ML IV SCH (23:22)
[2020-01-25] VITALS (30 sets, daily range): BP systolic 90–135
[2020-01-25] MEDS: INSULIN LISPRO SLIDING SCALE 100 UNITS/ML VIAL (humaLOG) SUBCUT PRN ×4 (00:28→17:14)
[2020-01-25] MEDS ORDERED: VASOPRESSIN 200 UNITS in D5W 90 ML IV PRN (02:45)
[2020-01-25] MEDS ORDERED: PHENYLEPHRINE HCL 30 MG in NS 247 ML IV PRN (03:15)
[2020-01-25] MEDS ORDERED: PHENYLEPHRINE HCL 10 MG/ML VIAL (NEOSYNEPHRINE) ONE (03:27)
[2020-01-25] MEDS ORDERED: NOREPINEPHRINE 4 MG/4 ML VIAL IV ONE ×4 (04:21→09:35)
[2020-01-25 07:02] LABS: BASOPHILS # (AUTO) 0.1 K/uL (0.0-0.2); BASOPHILS % (AUTO) 0.7 % (0.0-2.0); EOSINOPHILS # (AUTO) 0.1 K/uL (0.0-0.4); EOSINOPHILS % (AUTO) 0.9 % (0.0-4.0); HEMATOCRIT 24.9 % (36-54); LYMPHOCYTES # (AUTO) 1.2 K/uL (1.0-5.5); LYMPHOCYTES % (AUTO) 9.2 % (20.5-51.5); MEAN CORPUSCULAR HEMOGLOBIN 31 pg (27-31); MEAN CORPUSCULAR HGB CONC 32 % (32-36); MEAN CORPUSCULAR VOLUME 97 fL (79.0-98.0); MONOCYTES # (AUTO) 1.2 K/uL (0.0-1.0); MONOCYTES % (AUTO) 9.2 % (1.7-9.3); NEUTROPHILS # (AUTO) 10.1 K/uL (1.8-7.7); PLATELET COUNT (AUTO) 201 K/uL (130-430); RED BLOOD CELL COUNT(AUTO) 2.56 MIL/uL (4.2-6.2); RED CELL DISTRIBUTION WIDTH 18.9 % (9.0-15.0); WHITE BLOOD COUNT (AUTO) 12.7 K/uL (4.8-10.8)
[2020-01-25] MEDS: PIPERACILLIN/TAZO 2.25G/DEX-IS 50 ML IV SCH ×3 (07:11→22:55)
[2020-01-25 07:17] LABS: ALBUMIN 2.5 g/dL (3.4-4.8); CREATININE 3.58 mg/dL (0.55-1.30); PHOSPHORUS 3.6 mg/dL (2.7-4.5); POTASSIUM 5.1 mmol/L (3.5-5.1); TOTAL BILIRUBIN 0.5 mg/dL (0.0-1.0)
[2020-01-25] MEDS: levETIRAcetam 500 MG IV PREMIX 100 ML IV SCH ×2 (08:21→20:37)
[2020-01-25] MEDS: GABAPENTIN 100 MG CAPSULE PO SCH ×3 (08:44→21:07)
[2020-01-25] MEDS: QUEtiapine FUMARATE 25 MG TABLET PO SCH ×3 (08:44→21:07)
[2020-01-25] MEDS: NEPHROVITE, (FOLIC ACID/VITAMIN B COMP W-C 1 TAB) PO SCH (08:44)
[2020-01-25] MEDS: DIPHENHYDRAMINE HCL 12.5 MG/5 ML UDC PO SCH (08:54)
[2020-01-25] MEDS: LISINOPRIL 20 MG TABLET PO SCH (08:55)
[2020-01-25] MEDS: ENOXAPARIN SODIUM 100 MG/ML SYRINGE SUBCUT SCH ×2 (08:56→09:00)
[2020-01-25 08:57] LABS: INR 1.2 (0.80-1.20); PROTHROMBIN TIME 12.1 SECS (9.5-12.5)
[2020-01-25] MEDS: INSULIN GLARGINE 100 UNITS/ML 10 ML VIAL SUBCUT SCH (10:15)
[2020-01-25] MEDS ORDERED: NACL 0.9% 1,000 ML IV ONE (11:45)
[2020-01-25] MEDS ORDERED: DIGOXIN 0.5 MG/2 ML AMP IVP ONE (12:45)
[2020-01-25] MEDS ORDERED: HYDROCORTISONE SOD SUCC 100 MG/2 ML VIAL IVP ONE (12:45)
[2020-01-25] MEDS: NOREPINEPHRINE BITARTRATE 8 MG in D5W 242 ML IV PRN ×3 (13:41→20:39)
[2020-01-25] MEDS: POVIDONE IODINE TP SCH (16:23)
[2020-01-25] MEDS: EPOETIN ALFA 10,000 UNITS/ML VIAL SUBCUT SCH (17:08)
[2020-01-25] MEDS ORDERED: SODIUM ACETATE IV SCH ×10 (21:00)
[2020-01-25] MEDS ORDERED: SODIUM CHLORIDE IV SCH ×10 (21:00)
[2020-01-25] MEDS ORDERED: [UNRECOGNIZED DRUG - OTHER] IV SCH ×10 (21:00)
[2020-01-25] MEDS ORDERED: TPN PERIPHERAL IV SCH ×10 (21:00)
[2020-01-25] MEDS: FAT EMULSIONS 250 ML IV SCH (21:06)
[2020-01-25] MEDS: HYDROCORTISONE SOD SUCC 100 MG/2 ML VIAL IVP SCH (21:07)
[2020-01-26] VITALS (34 sets, daily range): BP systolic 90–135
[2020-01-26] MEDS: INSULIN LISPRO SLIDING SCALE 100 UNITS/ML VIAL (humaLOG) SUBCUT PRN ×4 (00:54→17:39)
[2020-01-26] MEDS: NOREPINEPHRINE BITARTRATE 8 MG in D5W 242 ML IV PRN ×3 (01:13→20:57)
[2020-01-26] MEDS: PIPERACILLIN/TAZO 2.25G/DEX-IS 50 ML IV SCH ×3 (05:32→20:53)
[2020-01-26 06:35] LABS: INR 1.3 (0.80-1.20); PROTHROMBIN TIME 12.9 SECS (9.5-12.5)
[2020-01-26 06:51] LABS: CALCIUM 10.3 mg/dL (8.4-11.0); CREATININE 5.12 mg/dL (0.55-1.30); PHOSPHORUS 4.7 mg/dL (2.7-4.5)
[2020-01-26] MEDS ORDERED: NOREPINEPHRINE 4 MG/4 ML VIAL IV ONE (07:24)
[2020-01-26 07:33] LABS: BASOPHILS # (AUTO) 0.1 K/uL (0.0-0.2); BASOPHILS % (AUTO) 0.5 % (0.0-2.0); EOSINOPHILS % (AUTO) 0.1 % (0.0-4.0); HEMOGLOBIN 7.1 g/dL (14.0-18.0); LYMPHOCYTES # (AUTO) 1.7 K/uL (1.0-5.5); LYMPHOCYTES % (AUTO) 14.6 % (20.5-51.5); MEAN CORPUSCULAR HEMOGLOBIN 31 pg (27-31); MEAN CORPUSCULAR HGB CONC 33 % (32-36); MEAN CORPUSCULAR VOLUME 96 fL (79.0-98.0); MONOCYTES # (AUTO) 1.1 K/uL (0.0-1.0); MONOCYTES % (AUTO) 9.2 % (1.7-9.3); NEUTROPHILS # (AUTO) 8.8 K/uL (1.8-7.7); NEUTROPHILS % (AUTO) 75.6 % (40.0-70.0); PLATELET COUNT (AUTO) 174 K/uL (130-430); RED BLOOD CELL COUNT(AUTO) 2.28 MIL/uL (4.2-6.2); RED CELL DISTRIBUTION WIDTH 19.6 % (9.0-15.0); WHITE BLOOD COUNT (AUTO) 11.6 K/uL (4.8-10.8)
[2020-01-26 08:13] LABS: HEMATOCRIT 21.9 % (36-54)
[2020-01-26] MEDS: LISINOPRIL 20 MG TABLET PO SCH (09:00)
[2020-01-26] MEDS: INSULIN GLARGINE 100 UNITS/ML 10 ML VIAL SUBCUT SCH (09:56)
[2020-01-26] MEDS: levETIRAcetam 500 MG IV PREMIX 100 ML IV SCH ×2 (10:07→20:55)
[2020-01-26] MEDS: POVIDONE IODINE TP SCH (10:08)
[2020-01-26] MEDS: DIPHENHYDRAMINE HCL 12.5 MG/5 ML UDC PO SCH (10:08)
[2020-01-26] MEDS: HYDROCORTISONE SOD SUCC 100 MG/2 ML VIAL IVP SCH ×2 (10:08→20:52)
[2020-01-26] MEDS: GABAPENTIN 100 MG CAPSULE PO SCH ×3 (10:08→20:52)
[2020-01-26] MEDS: NEPHROVITE, (FOLIC ACID/VITAMIN B COMP W-C 1 TAB) PO SCH (10:08)
[2020-01-26] MEDS: QUEtiapine FUMARATE 25 MG TABLET PO SCH ×3 (10:08→20:53)
[2020-01-26] MEDS ORDERED: PANTOPRAZOLE SODIUM 40 MG/VIAL (PROTONIX) IVP ONE (13:00)
[2020-01-26] MEDS: EPOETIN ALFA 10,000 UNITS/ML VIAL SUBCUT SCH (17:40)
[2020-01-26] MEDS: PANTOPRAZOLE SODIUM 40 MG/VIAL (PROTONIX) IVP SCH (20:52)
[2020-01-26] MEDS ORDERED: TPN PERIPHERAL IV SCH ×8 (21:00)
[2020-01-26] MEDS ORDERED: [UNRECOGNIZED DRUG - OTHER] IV SCH ×8 (21:00)
[2020-01-26] MEDS ORDERED: SODIUM ACETATE IV SCH ×8 (21:00)
[2020-01-26] MEDS ORDERED: SODIUM CHLORIDE IV SCH ×8 (21:00)
[2020-01-27] VITALS (35 sets, daily range): BP systolic 81–153
[2020-01-27] MEDS: NOREPINEPHRINE BITARTRATE 8 MG in D5W 242 ML IV PRN ×2 (02:56→14:00)
[2020-01-27] MEDS: PIPERACILLIN/TAZO 2.25G/DEX-IS 50 ML IV SCH ×3 (05:03→22:15)
[2020-01-27] MEDS: INSULIN LISPRO SLIDING SCALE 100 UNITS/ML VIAL (humaLOG) SUBCUT PRN ×3 (07:11→18:48)
[2020-01-27 08:20] LABS: BASOPHILS % (AUTO) 0.3 % (0.0-2.0); EOSINOPHILS % (AUTO) 0.1 % (0.0-4.0); HEMATOCRIT 23.1 % (36-54); HEMOGLOBIN 7.7 g/dL (14.0-18.0); LYMPHOCYTES # (AUTO) 1.2 K/uL (1.0-5.5); LYMPHOCYTES % (AUTO) 10.6 % (20.5-51.5); MEAN CORPUSCULAR HEMOGLOBIN 31 pg (27-31); MEAN CORPUSCULAR HGB CONC 33 % (32-36); MEAN CORPUSCULAR VOLUME 95 fL (79.0-98.0); MONOCYTES # (AUTO) 0.8 K/uL (0.0-1.0); MONOCYTES % (AUTO) 7.2 % (1.7-9.3); NEUTROPHILS # (AUTO) 9.1 K/uL (1.8-7.7); NEUTROPHILS % (AUTO) 81.8 % (40.0-70.0); PLATELET COUNT (AUTO) 150 K/uL (130-430); RED BLOOD CELL COUNT(AUTO) 2.44 MIL/uL (4.2-6.2); RED CELL DISTRIBUTION WIDTH 18.7 % (9.0-15.0); WHITE BLOOD COUNT (AUTO) 11.1 K/uL (4.8-10.8)
[2020-01-27 08:39] LABS: INR 1.3 (0.80-1.20); PROTHROMBIN TIME 13.1 SECS (9.5-12.5)
[2020-01-27 08:55] LABS: CREATININE 4.72 mg/dL (0.55-1.30); POTASSIUM 4.6 mmol/L (3.5-5.1); TOTAL BILIRUBIN 0.5 mg/dL (0.0-1.0)
[2020-01-27 08:56] LABS: ALBUMIN 1.8 g/dL (3.4-4.8)
[2020-01-27] MEDS: LISINOPRIL 20 MG TABLET PO SCH (09:00)
[2020-01-27] MEDS: levETIRAcetam 500 MG IV PREMIX 100 ML IV SCH ×2 (09:25→21:12)
[2020-01-27] MEDS: PANTOPRAZOLE SODIUM 40 MG/VIAL (PROTONIX) IVP SCH ×2 (09:25→21:12)
[2020-01-27] MEDS: HYDROCORTISONE SOD SUCC 100 MG/2 ML VIAL IVP SCH ×2 (09:25→21:12)
[2020-01-27] MEDS: QUEtiapine FUMARATE 25 MG TABLET PO SCH ×3 (09:26→21:13)
[2020-01-27] MEDS: GABAPENTIN 100 MG CAPSULE PO SCH ×3 (09:26→21:13)
[2020-01-27] MEDS: POVIDONE IODINE TP SCH (09:26)
[2020-01-27] MEDS: NEPHROVITE, (FOLIC ACID/VITAMIN B COMP W-C 1 TAB) PO SCH (09:26)
[2020-01-27] MEDS: DIPHENHYDRAMINE HCL 12.5 MG/5 ML UDC PO SCH (09:26)
[2020-01-27] MEDS: INSULIN GLARGINE 100 UNITS/ML 10 ML VIAL SUBCUT SCH (09:28)
[2020-01-27] MEDS ORDERED: EPOETIN ALFA 10,000 UNITS/ML VIAL ONE (18:32)
[2020-01-27] MEDS: EPOETIN ALFA 10,000 UNITS/ML VIAL SUBCUT SCH (18:43)
[2020-01-28] VITALS (35 sets, daily range): BP systolic 93–144
[2020-01-28] MEDS: INSULIN LISPRO SLIDING SCALE 100 UNITS/ML VIAL (humaLOG) SUBCUT PRN ×4 (00:05→18:36)
[2020-01-28] MEDS: NOREPINEPHRINE BITARTRATE 8 MG in D5W 242 ML IV PRN ×3 (02:57→20:43)
[2020-01-28] MEDS: PIPERACILLIN/TAZO 2.25G/DEX-IS 50 ML IV SCH ×3 (05:03→22:10)
[2020-01-28 06:44] LABS: BASOPHILS # (AUTO) 0.1 K/uL (0.0-0.2); BASOPHILS % (AUTO) 0.4 % (0.0-2.0); EOSINOPHILS % (AUTO) 0.1 % (0.0-4.0); HEMATOCRIT 25.1 % (36-54); HEMOGLOBIN 8.3 g/dL (14.0-18.0); LYMPHOCYTES % (AUTO) 7.4 % (20.5-51.5); MEAN CORPUSCULAR HEMOGLOBIN 31 pg (27-31); MEAN CORPUSCULAR HGB CONC 33 % (32-36); MEAN CORPUSCULAR VOLUME 95 fL (79.0-98.0); MONOCYTES # (AUTO) 0.7 K/uL (0.0-1.0); MONOCYTES % (AUTO) 5.1 % (1.7-9.3); NEUTROPHILS # (AUTO) 11.7 K/uL (1.8-7.7); PLATELET COUNT (AUTO) 187 K/uL (130-430); RED BLOOD CELL COUNT(AUTO) 2.65 MIL/uL (4.2-6.2); RED CELL DISTRIBUTION WIDTH 18.6 % (9.0-15.0); WHITE BLOOD COUNT (AUTO) 13.5 K/uL (4.8-10.8)
[2020-01-28 07:03] LABS: ALBUMIN 1.9 g/dL (3.4-4.8); CREATININE 5.92 mg/dL (0.55-1.30); POTASSIUM 4.8 mmol/L (3.5-5.1); TOTAL BILIRUBIN 0.5 mg/dL (0.0-1.0)
[2020-01-28] MEDS: levETIRAcetam 500 MG IV PREMIX 100 ML IV SCH ×2 (08:43→21:56)
[2020-01-28] MEDS: DIPHENHYDRAMINE HCL 12.5 MG/5 ML UDC PO SCH (08:44)
[2020-01-28] MEDS: DIGOXIN 0.5 MG/2 ML AMP IVP SCH (08:44)
[2020-01-28] MEDS: HYDROCORTISONE SOD SUCC 100 MG/2 ML VIAL IVP SCH ×2 (08:44→21:54)
[2020-01-28] MEDS: GABAPENTIN 100 MG CAPSULE PO SCH ×3 (08:44→21:54)
[2020-01-28] MEDS: PANTOPRAZOLE SODIUM 40 MG/VIAL (PROTONIX) IVP SCH ×2 (08:44→21:54)
[2020-01-28] MEDS: NEPHROVITE, (FOLIC ACID/VITAMIN B COMP W-C 1 TAB) PO SCH (08:45)
[2020-01-28] MEDS: LISINOPRIL 20 MG TABLET PO SCH (08:45)
[2020-01-28] MEDS: QUEtiapine FUMARATE 25 MG TABLET PO SCH ×3 (08:51→21:54)
[2020-01-28] MEDS: POVIDONE IODINE TP SCH (08:51)
[2020-01-28] MEDS: INSULIN GLARGINE 100 UNITS/ML 10 ML VIAL SUBCUT SCH (08:53)
[2020-01-28] MEDS: EPOETIN ALFA 10,000 UNITS/ML VIAL SUBCUT SCH (17:00)
[2020-01-28] MEDS: INSULIN NPH 100 UNITS/ML 10 ML VIAL SUBCUT SCH (22:09)
[2020-01-29] VITALS (35 sets, daily range): BP systolic 16–156
[2020-01-29] MEDS: INSULIN LISPRO SLIDING SCALE 100 UNITS/ML VIAL (humaLOG) SUBCUT PRN ×4 (00:01→17:48)
[2020-01-29] MEDS: NOREPINEPHRINE BITARTRATE 8 MG in D5W 242 ML IV PRN ×2 (04:22→12:54)
[2020-01-29] MEDS: PIPERACILLIN/TAZO 2.25G/DEX-IS 50 ML IV SCH ×3 (05:56→22:05)
[2020-01-29] MEDS: LISINOPRIL 20 MG TABLET PO SCH (09:00)
[2020-01-29] MEDS: INSULIN NPH 100 UNITS/ML 10 ML VIAL SUBCUT SCH ×2 (09:09→20:32)
[2020-01-29] MEDS: DIPHENHYDRAMINE HCL 12.5 MG/5 ML UDC PO SCH (09:10)
[2020-01-29] MEDS: NEPHROVITE, (FOLIC ACID/VITAMIN B COMP W-C 1 TAB) PO SCH (09:10)
[2020-01-29] MEDS: HYDROCORTISONE SOD SUCC 100 MG/2 ML VIAL IVP SCH ×2 (09:10→20:29)
[2020-01-29] MEDS: PANTOPRAZOLE SODIUM 40 MG/VIAL (PROTONIX) IVP SCH ×2 (09:10→20:29)
[2020-01-29] MEDS: QUEtiapine FUMARATE 25 MG TABLET PO SCH ×3 (09:11→20:29)
[2020-01-29] MEDS: POVIDONE IODINE TP SCH (09:11)
[2020-01-29] MEDS: levETIRAcetam 500 MG IV PREMIX 100 ML IV SCH ×2 (09:15→20:29)
[2020-01-29] MEDS: GABAPENTIN 100 MG CAPSULE PO SCH ×3 (09:20→20:29)
[2020-01-29] MEDS: EPOETIN ALFA 10,000 UNITS/ML VIAL SUBCUT SCH (17:37)
[2020-01-30] VITALS (34 sets, daily range): BP systolic 79–166
[2020-01-30] MEDS: INSULIN LISPRO SLIDING SCALE 100 UNITS/ML VIAL (humaLOG) SUBCUT PRN ×4 (00:34→17:37)
[2020-01-30] MEDS: NOREPINEPHRINE BITARTRATE 8 MG in D5W 242 ML IV PRN (03:23)
[2020-01-30] MEDS: PIPERACILLIN/TAZO 2.25G/DEX-IS 50 ML IV SCH ×3 (05:25→21:51)
[2020-01-30 08:20] LABS: BASOPHILS % (AUTO) 0.1 % (0.0-2.0); EOSINOPHILS % (AUTO) 0.3 % (0.0-4.0); HEMATOCRIT 26.4 % (36-54); HEMOGLOBIN 8.7 g/dL (14.0-18.0); LYMPHOCYTES # (AUTO) 1.4 K/uL (1.0-5.5); MEAN CORPUSCULAR HEMOGLOBIN 31 pg (27-31); MEAN CORPUSCULAR HGB CONC 33 % (32-36); MEAN CORPUSCULAR VOLUME 96 fL (79.0-98.0); MONOCYTES # (AUTO) 0.5 K/uL (0.0-1.0); MONOCYTES % (AUTO) 4.8 % (1.7-9.3); NEUTROPHILS # (AUTO) 8.6 K/uL (1.8-7.7); NEUTROPHILS % (AUTO) 81.8 % (40.0-70.0); PLATELET COUNT (AUTO) 165 K/uL (130-430); RED BLOOD CELL COUNT(AUTO) 2.76 MIL/uL (4.2-6.2); RED CELL DISTRIBUTION WIDTH 18.6 % (9.0-15.0); WHITE BLOOD COUNT (AUTO) 10.5 K/uL (4.8-10.8)
[2020-01-30] MEDS: GABAPENTIN 100 MG CAPSULE PO SCH ×3 (08:27→20:08)
[2020-01-30] MEDS: PANTOPRAZOLE SODIUM 40 MG/VIAL (PROTONIX) IVP SCH ×2 (08:27→20:08)
[2020-01-30] MEDS: levETIRAcetam 500 MG IV PREMIX 100 ML IV SCH ×2 (08:27→20:07)
[2020-01-30] MEDS: DIPHENHYDRAMINE HCL 12.5 MG/5 ML UDC PO SCH (08:27)
[2020-01-30] MEDS: QUEtiapine FUMARATE 25 MG TABLET PO SCH ×3 (08:28→20:08)
[2020-01-30] MEDS: NEPHROVITE, (FOLIC ACID/VITAMIN B COMP W-C 1 TAB) PO SCH (08:28)
[2020-01-30] MEDS: HYDROCORTISONE SOD SUCC 100 MG/2 ML VIAL IVP SCH ×2 (08:29→20:08)
[2020-01-30] MEDS: DIGOXIN 0.5 MG/2 ML AMP IVP SCH (08:30)
[2020-01-30 08:31] LABS: CALCIUM 8.6 mg/dL (8.4-11.0); CREATININE 6.24 mg/dL (0.55-1.30); POTASSIUM 3.4 mmol/L (3.5-5.1)
[2020-01-30] MEDS: LISINOPRIL 20 MG TABLET PO SCH (08:32)
[2020-01-30] MEDS: INSULIN NPH 100 UNITS/ML 10 ML VIAL SUBCUT SCH ×2 (08:38→20:12)
[2020-01-30 08:42] LABS: ALBUMIN 1.6 g/dL (3.4-4.8); TOTAL BILIRUBIN 0.3 mg/dL (0.0-1.0)
[2020-01-30] MEDS: POVIDONE IODINE TP SCH (11:57)
[2020-01-30] MEDS ORDERED: POTASSIUM CHLORIDE 20 MEQ/PKT PACKET PO ONE (16:45)
[2020-01-30] MEDS ORDERED: ALBUMIN HUMAN 25% 200 ML IV ONE (17:30)
[2020-01-30] MEDS ORDERED: COMMUNICATION ORDER XX ONE (17:30)
[2020-01-31] VITALS (35 sets, daily range): BP systolic 79–155
[2020-01-31] MEDS: PIPERACILLIN/TAZO 2.25G/DEX-IS 50 ML IV SCH ×3 (05:24→22:29)
[2020-01-31 06:43] LABS: BASOPHILS % (AUTO) 0.1 % (0.0-2.0); EOSINOPHILS % (AUTO) 0.1 % (0.0-4.0); HEMATOCRIT 25.8 % (36-54); HEMOGLOBIN 8.4 g/dL (14.0-18.0); LYMPHOCYTES # (AUTO) 0.8 K/uL (1.0-5.5); LYMPHOCYTES % (AUTO) 7.9 % (20.5-51.5); MEAN CORPUSCULAR HEMOGLOBIN 31 pg (27-31); MEAN CORPUSCULAR HGB CONC 33 % (32-36); MEAN CORPUSCULAR VOLUME 96 fL (79.0-98.0); MONOCYTES # (AUTO) 0.3 K/uL (0.0-1.0); MONOCYTES % (AUTO) 2.6 % (1.7-9.3); NEUTROPHILS # (AUTO) 9.4 K/uL (1.8-7.7); NEUTROPHILS % (AUTO) 89.3 % (40.0-70.0); PLATELET COUNT (AUTO) 143 K/uL (130-430); RED BLOOD CELL COUNT(AUTO) 2.69 MIL/uL (4.2-6.2); RED CELL DISTRIBUTION WIDTH 18.9 % (9.0-15.0); WHITE BLOOD COUNT (AUTO) 10.5 K/uL (4.8-10.8)
[2020-01-31 07:06] LABS: ALBUMIN 2.1 g/dL (3.4-4.8); CALCIUM 8.8 mg/dL (8.4-11.0); CREATININE 4.81 mg/dL (0.55-1.30); POTASSIUM 3.5 mmol/L (3.5-5.1); TOTAL BILIRUBIN 0.4 mg/dL (0.0-1.0)
[2020-01-31] MEDS ORDERED: ALBUMIN HUMAN 25% 200 ML IV ONE (08:15)
[2020-01-31] MEDS: HYDROCORTISONE SOD SUCC 100 MG/2 ML VIAL IVP SCH ×2 (08:37→20:20)
[2020-01-31] MEDS: DIPHENHYDRAMINE HCL 12.5 MG/5 ML UDC PO SCH (08:37)
[2020-01-31] MEDS: LISINOPRIL 20 MG TABLET PO SCH (08:38)
[2020-01-31] MEDS: PANTOPRAZOLE SODIUM 40 MG/VIAL (PROTONIX) IVP SCH ×2 (08:38→20:20)
[2020-01-31] MEDS: QUEtiapine FUMARATE 25 MG TABLET PO SCH ×3 (08:38→20:21)
[2020-01-31] MEDS: NEPHROVITE, (FOLIC ACID/VITAMIN B COMP W-C 1 TAB) PO SCH (08:38)
[2020-01-31] MEDS: GABAPENTIN 100 MG CAPSULE PO SCH ×3 (08:38→20:21)
[2020-01-31] MEDS: INSULIN NPH 100 UNITS/ML 10 ML VIAL SUBCUT SCH ×2 (08:41→20:26)
[2020-01-31] MEDS: levETIRAcetam 500 MG IV PREMIX 100 ML IV SCH ×2 (08:44→20:21)
[2020-01-31] MEDS: POVIDONE IODINE TP SCH (08:44)
[2020-01-31] MEDS: INSULIN LISPRO SLIDING SCALE 100 UNITS/ML VIAL (humaLOG) SUBCUT PRN ×2 (11:34→17:25)
[2020-01-31] MEDS: EPOETIN ALFA 10,000 UNITS/ML VIAL SUBCUT SCH (17:19)
[2020-02-01] VITALS (35 sets, daily range): BP systolic 84–156
[2020-02-01] MEDS: INSULIN LISPRO SLIDING SCALE 100 UNITS/ML VIAL (humaLOG) SUBCUT PRN ×2 (00:49→18:06)
[2020-02-01 05:22] LABS: BASOPHILS % (AUTO) 0.1 % (0.0-2.0); EOSINOPHILS % (AUTO) 0.1 % (0.0-4.0); HEMATOCRIT 28.9 % (36-54); HEMOGLOBIN 9.3 g/dL (14.0-18.0); LYMPHOCYTES # (AUTO) 0.7 K/uL (1.0-5.5); LYMPHOCYTES % (AUTO) 4.4 % (20.5-51.5); MEAN CORPUSCULAR HEMOGLOBIN 31 pg (27-31); MEAN CORPUSCULAR HGB CONC 32 % (32-36); MEAN CORPUSCULAR VOLUME 96 fL (79.0-98.0); MONOCYTES # (AUTO) 0.3 K/uL (0.0-1.0); MONOCYTES % (AUTO) 1.7 % (1.7-9.3); NEUTROPHILS # (AUTO) 15.9 K/uL (1.8-7.7); NEUTROPHILS % (AUTO) 93.7 % (40.0-70.0); PLATELET COUNT (AUTO) 172 K/uL (130-430); RED BLOOD CELL COUNT(AUTO) 3.01 MIL/uL (4.2-6.2); RED CELL DISTRIBUTION WIDTH 19.1 % (9.0-15.0); WHITE BLOOD COUNT (AUTO) 16.9 K/uL (4.8-10.8)
[2020-02-01] MEDS: PIPERACILLIN/TAZO 2.25G/DEX-IS 50 ML IV SCH ×3 (05:36→22:31)
[2020-02-01 05:41] LABS: ALBUMIN 2.3 g/dL (3.4-4.8); CALCIUM 9.2 mg/dL (8.4-11.0); CREATININE 5.7 mg/dL (0.55-1.30); PHOSPHORUS 6.3 mg/dL (2.7-4.5); POTASSIUM 3.6 mmol/L (3.5-5.1); TOTAL BILIRUBIN 0.5 mg/dL (0.0-1.0)
[2020-02-01] MEDS: levETIRAcetam 500 MG IV PREMIX 100 ML IV SCH ×2 (08:13→21:39)
[2020-02-01] MEDS: NEPHROVITE, (FOLIC ACID/VITAMIN B COMP W-C 1 TAB) PO SCH (08:13)
[2020-02-01] MEDS: HYDROCORTISONE SOD SUCC 100 MG/2 ML VIAL IVP SCH ×2 (08:13→21:39)
[2020-02-01] MEDS: GABAPENTIN 100 MG CAPSULE PO SCH ×3 (08:13→21:39)
[2020-02-01] MEDS: PANTOPRAZOLE SODIUM 40 MG/VIAL (PROTONIX) IVP SCH ×2 (08:13→21:39)
[2020-02-01] MEDS: LISINOPRIL 20 MG TABLET PO SCH (08:14)
[2020-02-01] MEDS: DIPHENHYDRAMINE HCL 12.5 MG/5 ML UDC PO SCH (08:14)
[2020-02-01] MEDS: QUEtiapine FUMARATE 25 MG TABLET PO SCH ×3 (08:14→21:39)
[2020-02-01] MEDS: DIGOXIN 0.5 MG/2 ML AMP IVP SCH (08:15)
[2020-02-01] MEDS: POVIDONE IODINE TP SCH (08:16)
[2020-02-01] MEDS: INSULIN NPH 100 UNITS/ML 10 ML VIAL SUBCUT SCH ×2 (08:19→21:44)
[2020-02-01] MEDS ORDERED: ALBUMIN HUMAN 25% 50 ML IV ONE ×3 (19:15)
[2020-02-01] MEDS ORDERED: ALBUMIN HUMAN 25% 200 ML IV ONE (19:15)
[2020-02-01] MEDS ORDERED: ALBUMIN HUMAN 25% 100 ML IV ONE ×2 (19:18→19:19)
[2020-02-02] VITALS (35 sets, daily range): BP systolic 92–143
[2020-02-02] MEDS: INSULIN LISPRO SLIDING SCALE 100 UNITS/ML VIAL (humaLOG) SUBCUT PRN ×3 (00:50→23:57)
[2020-02-02] MEDS: PIPERACILLIN/TAZO 2.25G/DEX-IS 50 ML IV SCH ×3 (05:42→22:36)
[2020-02-02 05:48] LABS: BASOPHILS % (AUTO) 0.1 % (0.0-2.0); EOSINOPHILS % (AUTO) 0.1 % (0.0-4.0); HEMATOCRIT 24.6 % (36-54); HEMOGLOBIN 7.9 g/dL (14.0-18.0); LYMPHOCYTES # (AUTO) 0.5 K/uL (1.0-5.5); LYMPHOCYTES % (AUTO) 3.6 % (20.5-51.5); MEAN CORPUSCULAR HEMOGLOBIN 31 pg (27-31); MEAN CORPUSCULAR HGB CONC 32 % (32-36); MEAN CORPUSCULAR VOLUME 96 fL (79.0-98.0); MONOCYTES # (AUTO) 0.3 K/uL (0.0-1.0); NEUTROPHILS # (AUTO) 13.8 K/uL (1.8-7.7); NEUTROPHILS % (AUTO) 94.2 % (40.0-70.0); PLATELET COUNT (AUTO) 160 K/uL (130-430); RED BLOOD CELL COUNT(AUTO) 2.57 MIL/uL (4.2-6.2); RED CELL DISTRIBUTION WIDTH 19.5 % (9.0-15.0); WHITE BLOOD COUNT (AUTO) 14.6 K/uL (4.8-10.8)
[2020-02-02 06:22] LABS: CREATININE 4.22 mg/dL (0.55-1.30); PHOSPHORUS 4.7 mg/dL (2.7-4.5)
[2020-02-02 07:14] LABS: POTASSIUM 2.8 mmol/L (3.5-5.1)
[2020-02-02] MEDS: GABAPENTIN 100 MG CAPSULE PO SCH ×3 (09:51→21:07)
[2020-02-02] MEDS: QUEtiapine FUMARATE 25 MG TABLET PO SCH ×3 (09:51→21:07)
[2020-02-02] MEDS: NEPHROVITE, (FOLIC ACID/VITAMIN B COMP W-C 1 TAB) PO SCH (09:51)
[2020-02-02] MEDS: DIPHENHYDRAMINE HCL 12.5 MG/5 ML UDC PO SCH (09:51)
[2020-02-02] MEDS: INSULIN NPH 100 UNITS/ML 10 ML VIAL SUBCUT SCH ×2 (09:51→21:10)
[2020-02-02] MEDS: PANTOPRAZOLE SODIUM 40 MG/VIAL (PROTONIX) IVP SCH ×2 (09:52→21:07)
[2020-02-02] MEDS: LISINOPRIL 20 MG TABLET PO SCH (09:52)
[2020-02-02] MEDS: HYDROCORTISONE SOD SUCC 100 MG/2 ML VIAL IVP SCH ×2 (09:52→21:07)
[2020-02-02] MEDS: levETIRAcetam 500 MG IV PREMIX 100 ML IV SCH ×2 (10:03→21:07)
[2020-02-02] MEDS: POVIDONE IODINE TP SCH (11:55)
[2020-02-02] MEDS ORDERED: ALBUMIN HUMAN 25% 200 ML IV ONE ×2 (15:30→15:40)
[2020-02-02] MEDS: LORazepam 2 MG/ML VIAL IVP PRN (23:57)
[2020-02-03] VITALS (29 sets, daily range): BP systolic 90–204
[2020-02-03] MEDS: cloNIDine HCL 0.1 MG TABLET PO PRN (01:33)
[2020-02-03 04:30] LABS: BASOPHILS % (AUTO) 0.1 % (0.0-2.0); EOSINOPHILS % (AUTO) 0.2 % (0.0-4.0); HEMATOCRIT 25.7 % (36-54); HEMOGLOBIN 8.3 g/dL (14.0-18.0); LYMPHOCYTES # (AUTO) 0.6 K/uL (1.0-5.5); LYMPHOCYTES % (AUTO) 4.7 % (20.5-51.5); MEAN CORPUSCULAR HEMOGLOBIN 31 pg (27-31); MEAN CORPUSCULAR HGB CONC 32 % (32-36); MEAN CORPUSCULAR VOLUME 96 fL (79.0-98.0); MONOCYTES # (AUTO) 0.3 K/uL (0.0-1.0); MONOCYTES % (AUTO) 2.6 % (1.7-9.3); NEUTROPHILS # (AUTO) 11.2 K/uL (1.8-7.7); NEUTROPHILS % (AUTO) 92.4 % (40.0-70.0); PLATELET COUNT (AUTO) 185 K/uL (130-430); RED BLOOD CELL COUNT(AUTO) 2.68 MIL/uL (4.2-6.2); RED CELL DISTRIBUTION WIDTH 19.4 % (9.0-15.0); WHITE BLOOD COUNT (AUTO) 12.1 K/uL (4.8-10.8)
[2020-02-03 04:51] LABS: ALBUMIN 2.8 g/dL (3.4-4.8); CALCIUM 8.7 mg/dL (8.4-11.0); CREATININE 3.53 mg/dL (0.55-1.30); POTASSIUM 3.1 mmol/L (3.5-5.1); TOTAL BILIRUBIN 0.3 mg/dL (0.0-1.0)
[2020-02-03] MEDS: PIPERACILLIN/TAZO 2.25G/DEX-IS 50 ML IV SCH ×3 (06:28→21:57)
[2020-02-03] MEDS: INSULIN LISPRO SLIDING SCALE 100 UNITS/ML VIAL (humaLOG) SUBCUT PRN ×3 (06:30→22:25)
[2020-02-03] MEDS: HYDROCORTISONE SOD SUCC 100 MG/2 ML VIAL IVP SCH ×2 (08:48→21:58)
[2020-02-03] MEDS: GABAPENTIN 100 MG CAPSULE PO SCH ×3 (08:48→21:59)
[2020-02-03] MEDS: NEPHROVITE, (FOLIC ACID/VITAMIN B COMP W-C 1 TAB) PO SCH (08:48)
[2020-02-03] MEDS: PANTOPRAZOLE SODIUM 40 MG/VIAL (PROTONIX) IVP SCH ×2 (08:48→21:58)
[2020-02-03] MEDS: LISINOPRIL 20 MG TABLET PO SCH (08:48)
[2020-02-03] MEDS: levETIRAcetam 500 MG IV PREMIX 100 ML IV SCH ×2 (08:50→21:58)
[2020-02-03] MEDS: INSULIN NPH 100 UNITS/ML 10 ML VIAL SUBCUT SCH (08:52)
[2020-02-03] MEDS: QUEtiapine FUMARATE 25 MG TABLET PO SCH ×3 (09:00→21:59)
[2020-02-03] MEDS: DIPHENHYDRAMINE HCL 12.5 MG/5 ML UDC PO SCH (09:00)
[2020-02-03] MEDS: EPOETIN ALFA 10,000 UNITS/ML VIAL SUBCUT SCH (17:00)
[2020-02-03] MEDS: POVIDONE IODINE TP SCH (18:20)
[2020-02-03] MEDS ORDERED: INSULIN NPH 100 UNITS/ML 10 ML VIAL SUBCUT SCH (21:00)
[2020-02-04] VITALS (33 sets, daily range): BP systolic 97–168
[2020-02-04] MEDS: INSULIN LISPRO SLIDING SCALE 100 UNITS/ML VIAL (humaLOG) SUBCUT PRN (00:10)
[2020-02-04] MEDS: LORazepam 2 MG/ML VIAL IVP PRN (00:41)
[2020-02-04] MEDS: PIPERACILLIN/TAZO 2.25G/DEX-IS 50 ML IV SCH ×3 (07:27→21:56)
[2020-02-04] MEDS: levETIRAcetam 500 MG IV PREMIX 100 ML IV SCH ×3 (07:53→21:55)
[2020-02-04] MEDS: NEPHROVITE, (FOLIC ACID/VITAMIN B COMP W-C 1 TAB) PO SCH (09:00)
[2020-02-04] MEDS: HYDROCORTISONE SOD SUCC 100 MG/2 ML VIAL IVP SCH ×2 (09:00→18:13)
[2020-02-04] MEDS: DIGOXIN 0.5 MG/2 ML AMP IVP SCH (09:00)
[2020-02-04] MEDS: GABAPENTIN 100 MG CAPSULE PO SCH ×3 (09:00→21:56)
[2020-02-04] MEDS: LISINOPRIL 20 MG TABLET PO SCH (09:00)
[2020-02-04] MEDS: DIPHENHYDRAMINE HCL 12.5 MG/5 ML UDC PO SCH (09:00)
[2020-02-04] MEDS ORDERED: INSULIN NPH 100 UNITS/ML 10 ML VIAL SUBCUT SCH (09:00)
[2020-02-04] MEDS: POVIDONE IODINE TP SCH (09:00)
[2020-02-04] MEDS: QUEtiapine FUMARATE 25 MG TABLET PO SCH ×3 (09:00→21:56)
[2020-02-04] MEDS: PANTOPRAZOLE SODIUM 40 MG/VIAL (PROTONIX) IVP SCH ×2 (09:00→21:56)
[2020-02-05] VITALS (28 sets, daily range): BP systolic 64–156
[2020-02-05] MEDS: HYDROCORTISONE SOD SUCC 100 MG/2 ML VIAL IVP SCH ×4 (00:07→17:29)
[2020-02-05] MEDS: INSULIN LISPRO SLIDING SCALE 100 UNITS/ML VIAL (humaLOG) SUBCUT PRN ×4 (00:09→17:38)
[2020-02-05] MEDS: PIPERACILLIN/TAZO 2.25G/DEX-IS 50 ML IV SCH (06:26)
[2020-02-05] MEDS: PANTOPRAZOLE SODIUM 40 MG/VIAL (PROTONIX) IVP SCH ×2 (07:59→21:32)
[2020-02-05] MEDS: GABAPENTIN 100 MG CAPSULE PO SCH ×3 (07:59→21:32)
[2020-02-05] MEDS: QUEtiapine FUMARATE 25 MG TABLET PO SCH ×3 (07:59→21:32)
[2020-02-05] MEDS: NEPHROVITE, (FOLIC ACID/VITAMIN B COMP W-C 1 TAB) PO SCH (07:59)
[2020-02-05] MEDS: DIPHENHYDRAMINE HCL 12.5 MG/5 ML UDC PO SCH (08:00)
[2020-02-05] MEDS: levETIRAcetam 500 MG IV PREMIX 100 ML IV SCH ×2 (08:01→21:32)
[2020-02-05 08:07] LABS: HEPATITIS A AB, IgM Negative (Negative); HEPATITIS B CORE AB, IgM Negative (Negative); HEPATITIS B SURFACE AG Negative (Negative)
[2020-02-05 08:52] LABS: BASOPHILS % (AUTO) 0.3 % (0.0-2.0); EOSINOPHILS # (AUTO) 0.2 K/uL (0.0-0.4); EOSINOPHILS % (AUTO) 1.5 % (0.0-4.0); HEMATOCRIT 24.6 % (36-54); HEMOGLOBIN 7.8 g/dL (14.0-18.0); LYMPHOCYTES # (AUTO) 0.5 K/uL (1.0-5.5); LYMPHOCYTES % (AUTO) 4.7 % (20.5-51.5); MEAN CORPUSCULAR HEMOGLOBIN 31 pg (27-31); MEAN CORPUSCULAR HGB CONC 32 % (32-36); MEAN CORPUSCULAR VOLUME 98 fL (79.0-98.0); MONOCYTES # (AUTO) 0.3 K/uL (0.0-1.0); MONOCYTES % (AUTO) 2.9 % (1.7-9.3); NEUTROPHILS # (AUTO) 10.1 K/uL (1.8-7.7); NEUTROPHILS % (AUTO) 90.6 % (40.0-70.0); PLATELET COUNT (AUTO) 227 K/uL (130-430); RED BLOOD CELL COUNT(AUTO) 2.51 MIL/uL (4.2-6.2); RED CELL DISTRIBUTION WIDTH 19.8 % (9.0-15.0); WHITE BLOOD COUNT (AUTO) 11.2 K/uL (4.8-10.8)
[2020-02-05] MEDS: LISINOPRIL 20 MG TABLET PO SCH (09:00)
[2020-02-05 09:12] LABS: CALCIUM 7.4 mg/dL (8.4-11.0); CREATININE 3.25 mg/dL (0.55-1.30); POTASSIUM 3.1 mmol/L (3.5-5.1); TOTAL BILIRUBIN 0.4 mg/dL (0.0-1.0)
[2020-02-05] MEDS: POVIDONE IODINE TP SCH (10:14)
[2020-02-05] MEDS: CEFEPIME 1 GM in D5W 50 ML IV SCH (13:27)
[2020-02-05] MEDS: EPOETIN ALFA 10,000 UNITS/ML VIAL SUBCUT SCH (17:29)
[2020-02-05] MEDS: metroNIDAZOLE 500 mg/NS 100 ML IV SCH (21:32)
[2020-02-06] VITALS (23 sets, daily range): BP systolic 98–200
[2020-02-06] MEDS: HYDROCORTISONE SOD SUCC 100 MG/2 ML VIAL IVP SCH ×4 (00:10→18:18)
[2020-02-06] MEDS: INSULIN LISPRO SLIDING SCALE 100 UNITS/ML VIAL (humaLOG) SUBCUT PRN ×3 (00:11→18:26)
[2020-02-06] MEDS: LORazepam 2 MG/ML VIAL IVP PRN ×2 (00:16→22:19)
[2020-02-06] MEDS: GABAPENTIN 100 MG CAPSULE PO SCH ×3 (09:00→20:02)
[2020-02-06] MEDS: LISINOPRIL 20 MG TABLET PO SCH (09:00)
[2020-02-06] MEDS: NEPHROVITE, (FOLIC ACID/VITAMIN B COMP W-C 1 TAB) PO SCH (09:00)
[2020-02-06] MEDS: DIPHENHYDRAMINE HCL 12.5 MG/5 ML UDC PO SCH (09:00)
[2020-02-06] MEDS: QUEtiapine FUMARATE 25 MG TABLET PO SCH ×3 (09:00→20:02)
[2020-02-06] MEDS: DIGOXIN 0.5 MG/2 ML AMP IVP SCH (09:26)
[2020-02-06] MEDS: PANTOPRAZOLE SODIUM 40 MG/VIAL (PROTONIX) IVP SCH ×2 (09:26→20:02)
[2020-02-06] MEDS: levETIRAcetam 500 MG IV PREMIX 100 ML IV SCH ×2 (09:27→20:02)
[2020-02-06] MEDS: metroNIDAZOLE 500 mg/NS 100 ML IV SCH ×2 (09:27→21:12)
[2020-02-06] MEDS: POVIDONE IODINE TP SCH (09:27)
[2020-02-06] MEDS: CEFEPIME 1 GM in D5W 50 ML IV SCH (12:41)
[2020-02-06] MEDS ORDERED: hydrALAZINE HCL 20 MG/ML VIAL IVP ONE (19:45)
[2020-02-06] MEDS ORDERED: hydrALAZINE HCL 20 MG/ML VIAL ONE (20:03)
[2020-02-07] MEDS: HYDROCORTISONE SOD SUCC 100 MG/2 ML VIAL IVP SCH ×4 (00:37→18:18)
[2020-02-07] MEDS: INSULIN LISPRO SLIDING SCALE 100 UNITS/ML VIAL (humaLOG) SUBCUT PRN ×2 (00:54→05:58)
[2020-02-07 01:09] VITALS: BP_SYST 111
[2020-02-07 08:00] VITALS: BP_SYST 171
[2020-02-07] MEDS: PANTOPRAZOLE SODIUM 40 MG/VIAL (PROTONIX) IVP SCH (08:39)
[2020-02-07] MEDS: QUEtiapine FUMARATE 25 MG TABLET PO SCH ×2 (08:39→16:28)
[2020-02-07] MEDS: cloNIDine HCL 0.1 MG TABLET PO PRN (08:39)
[2020-02-07] MEDS: GABAPENTIN 100 MG CAPSULE PO SCH ×2 (08:39→16:28)
[2020-02-07] MEDS: metroNIDAZOLE 500 mg/NS 100 ML IV SCH (08:40)
[2020-02-07] MEDS: levETIRAcetam 500 MG IV PREMIX 100 ML IV SCH (08:40)
[2020-02-07] MEDS: NEPHROVITE, (FOLIC ACID/VITAMIN B COMP W-C 1 TAB) PO SCH (08:40)
[2020-02-07] MEDS: LISINOPRIL 20 MG TABLET PO SCH (08:40)
[2020-02-07] MEDS: DIPHENHYDRAMINE HCL 12.5 MG/5 ML UDC PO SCH (08:40)
[2020-02-07 09:11] VITALS: BP_SYST 158
[2020-02-07] MEDS: POVIDONE IODINE TP SCH (10:24)
[2020-02-07] MEDS: CEFEPIME 1 GM in D5W 50 ML IV SCH (11:00)
[2020-02-07 12:00] VITALS: BP_SYST 113
[2020-02-07 16:00] VITALS: BP_SYST 134
[2020-02-07] MEDS: EPOETIN ALFA 10,000 UNITS/ML VIAL SUBCUT SCH (17:45)
[2020-02-07 18:32] VITALS: BP_SYST 140
[2020-02-08] MEDS ORDERED: INSULIN GLARGINE 100 UNITS/ML 10 ML VIAL SUBCUT SCH (07:00)
== END 2020-02-07 20:20 | DRG 870 ==
LOC: SED 17:43 → STU 18:41 → SMU 01-19 23:23 → STU 01-22 12:32 → SIC 01-24 06:44 → STU 02-06 20:21
PROVIDERS: ADMIT Family Medicine; ATTEND Family Medicine
PROC: 5A1D70Z Performance of Urinary Filtration, Intermittent, Less than 6 Hours Per Day (ICD-10-PCS; 2020-01-15)
PROC: 5A1D70Z Performance of Urinary Filtration, Intermittent, Less than 6 Hours Per Day (ICD-10-PCS; 2020-01-17)
PROC: 5A1D70Z Performance of Urinary Filtration, Intermittent, Less than 6 Hours Per Day (ICD-10-PCS; 2020-01-19)
PROC: 5A1D70Z Performance of Urinary Filtration, Intermittent, Less than 6 Hours Per Day (ICD-10-PCS; 2020-01-22)
PROC: 5A1D70Z Performance of Urinary Filtration, Intermittent, Less than 6 Hours Per Day (ICD-10-PCS; 2020-01-23)
PROC: 5A1955Z Respiratory Ventilation, Greater than 96 Consecutive Hours (ICD-10-PCS; principal; 2020-01-24)
PROC: 0BH17EZ Insertion of Endotracheal Airway into Trachea, Via Natural or Artificial Opening (ICD-10-PCS; 2020-01-24)
PROC: 02HV33Z Insertion of Infusion Device into Superior Vena Cava, Percutaneous Approach (ICD-10-PCS; 2020-01-25)
PROC: B548ZZA Ultrasonography of Superior Vena Cava, Guidance (ICD-10-PCS; 2020-01-25)
PROC: 30233N1 Transfusion of Nonautologous Red Blood Cells into Peripheral Vein, Percutaneous Approach (ICD-10-PCS; 2020-01-26)
PROC: 5A1D70Z Performance of Urinary Filtration, Intermittent, Less than 6 Hours Per Day (ICD-10-PCS; 2020-01-26)
PROC: 5A1D70Z Performance of Urinary Filtration, Intermittent, Less than 6 Hours Per Day (ICD-10-PCS; 2020-01-28)
PROC: 5A1D70Z Performance of Urinary Filtration, Intermittent, Less than 6 Hours Per Day (ICD-10-PCS; 2020-01-30)
PROC: 5A1D70Z Performance of Urinary Filtration, Intermittent, Less than 6 Hours Per Day (ICD-10-PCS; 2020-02-01)
PROC: 5A1D70Z Performance of Urinary Filtration, Intermittent, Less than 6 Hours Per Day (ICD-10-PCS; 2020-02-02)
PROC: 5A1D70Z Performance of Urinary Filtration, Intermittent, Less than 6 Hours Per Day (ICD-10-PCS; 2020-02-03)
PROC: 5A1D70Z Performance of Urinary Filtration, Intermittent, Less than 6 Hours Per Day (ICD-10-PCS; 2020-02-05)
PROC: 5A1D70Z Performance of Urinary Filtration, Intermittent, Less than 6 Hours Per Day (ICD-10-PCS; 2020-02-07)
DX: A41.9 Sepsis, unspecified organism (principal); N18.6 End stage renal disease; E43 Unspecified severe protein-calorie malnutrition; J69.0 Pneumonitis due to inhalation of food and vomit; J96.21 Acute and chronic respiratory failure with hypoxia; R57.0 Cardiogenic shock; R65.21 Severe sepsis with septic shock; I21.A1 Myocardial infarction type 2; B37.49 Other urogenital candidiasis; E11.52 Type 2 diabetes mellitus with diabetic peripheral angiopathy with gangrene; E66.2 Morbid (severe) obesity with alveolar hypoventilation; J91.8 Pleural effusion in other conditions classified elsewhere; L97.929 Non-pressure chronic ulcer of unspecified part of left lower leg with unspecified severity; N17.9 Acute kidney failure, unspecified; N25.81 Secondary hyperparathyroidism of renal origin; I48.20 Chronic atrial fibrillation, unspecified; D68.9 Coagulation defect, unspecified; I13.2 Hypertensive heart and chronic kidney disease with heart failure and with stage 5 chronic kidney disease, or end stage renal disease; E11.22 Type 2 diabetes mellitus with diabetic chronic kidney disease; E11.65 Type 2 diabetes mellitus with hyperglycemia; E83.51 Hypocalcemia; E87.6 Hypokalemia; F03.90 Unspecified dementia, unspecified severity, without behavioral disturbance, psychotic disturbance, mood disturbance, and anxiety; Z20.828 Contact with and (suspected) exposure to other viral communicable diseases; G40.409 Other generalized epilepsy and epileptic syndromes, not intractable, without status epilepticus; D63.1 Anemia in chronic kidney disease; E83.52 Hypercalcemia; I25.10 Atherosclerotic heart disease of native coronary artery without angina pectoris; W18.39XA Other fall on same level, initial encounter; Y93.89 Activity, other specified; Y92.89 Other specified places as the place of occurrence of the external cause; Y99.8 Other external cause status; Z68.35 Body mass index [BMI] 35.0-35.9, adult; Z79.01 Long term (current) use of anticoagulants; Z79.899 Other long term (current) drug therapy; Z87.891 Personal history of nicotine dependence; Z99.2 Dependence on renal dialysis; Z89.429 Acquired absence of other toe(s), unspecified side; Z79.4 Long term (current) use of insulin
CPT/HCPCS: 36415; 36600; 70450-TC; 71045; 76536-TC; 76700-TC; 80048; 80053; 80074; 81000-TC; 82140-TC; 82150-TC; 82306; 82803-TC; 82962; 83036; 83519; 83605; 83735-TC; 83970; 84100-TC; 84155; 84165; 84443-TC; 84478-TC; 84484; 85025; 85610-TC; 85730-TC; 86886; 86900; 86901; 86920; 87040-TC; 87081; 87086; 90935; 90937; 92610-GN; 93005; 93306; 94002; 94003; 94640; 95816; 96361; 96374; 99291; C1751; C9113; G0378; J0360; J0461; J0630; J0692; J0696; J0885; J1160; J1450; J1630; J1644; J1650; J1720; J1815; J1940; J1953; J2060; J2370; J2430; J2543; J2704; J3475; J3480; J3490; J7030; J7040; J7050; J7060; J7131; P9021; P9046; U0003-CS